=== PATIENT | male | born 1935 | race Caucasian/White ===

== ENCOUNTER 2016-08-17 07:08 | Day surgery (SDC) | payer MEDICARE, OTHER ==
[2016-08-17] MEDS ORDERED: PROMETHAZINE HCL INJ 25 MG/1 ML VIAL ONE (07:11)
[2016-08-17] MEDS ORDERED: ONDANSETRON HCL INJ/PF 4 MG/2 ML SDV ONE (07:11)
[2016-08-17] MEDS ORDERED: NALOXONE HCL INJ/PF 0.4 MG/1 ML SDV ONE (07:11)
[2016-08-17] MEDS ORDERED: GLYCOPYRROLATE INJ 0.4 MG/2 ML VIAL ONE (07:11)
[2016-08-17] MEDS ORDERED: GLUCAGON,HUMAN RECOMB 1 MG INJ ONE (07:12)
[2016-08-17] MEDS ORDERED: EPINEPHRINE INJ 1 MG/10 ML DISP.SYRIN ONE (07:12)
[2016-08-17] MEDS ORDERED: FENTANYL CITRATE INJ/PF 100 MCG/2 ML AMPUL ONE (07:12)
[2016-08-17] MEDS ORDERED: FLUMAZENIL INJ 0.5 MG/5 ML VIAL IV ONE (07:12)
[2016-08-17] MEDS: MIDAZOLAM 2 MG/2 ML INJ ONE ×3 (07:48→08:08)
--- NOTE | 2016-08-17 08:50 | Operative Report ---
Operative Report DATE OF SURGERY: 08/17/16 PREOPERATIVE DIAGNOSIS: Need for screening colonoscopy POSTOPERATIVE DIAGNOSIS: 1. External hemorrhoid, collapsed. 2. Sigmoid diverticulosis. 3. Cecal mass OPERATION: 1. Total colonoscopy to cecum. 2. Piecemeal excision of of cecal mass SURGEON: LEONARDA GOLDEN ANESTHESIA: Moderate Sedation TISSUE REMOVED OR ALTERED: Cecal mass portions COMPLICATIONS: None ESTIMATED BLOOD LOSS: scant INTRAOPERATIVE FINDINGS: See below PROCEDURE: Obtaining informed consent the patient was taken from the preoperative holding area to the main endoscopy suite where monitoring devices were attached to the patient. Plan and surgical timeout were conducted The patient was placed in the left lateral decubitus position with knees to chest. A perianal examination was performed. There was no visible or palpable anorectal pathology. Was a small external posterior collapsed hemorrhoid. Sphincter tone was felt to be normal. The flexible adult colonoscope was advanced through the lower rectum mid rectum upper rectum and sigmoid colon. Scope could not be advanced because of kinking of the colon. Patient was changed to different positions and then it was discovered that the colonoscope was getting hung up in the sigmoid colon which was gently herniating into the left hemiscrotum. We removed the adult colonoscope and advanced the pediatric scope successfully through the rectum, and sigmoid colon by having the patient stay in the supine position. The scope was advanced uneventfully all the way to the cecum. There was a cecal mass on the medial side of the wall of the junction with the descending colon. It was approximately 2-1/2-3 cm in diameter, very friable, pedunculated in areas. Multiple photos were taken. We used a combination of forceps and hot snare to debulk the mass. Fragments were collected through the scope and sent to pathology as a cecal mass. We left behind approximately one third of the mass the base of the wall. Bleeding was negligible. The remainder of the cecum appendiceal orifice were normal. Otherwise, denies This was an excellent study on the well-prepped bowel. The colonoscope was withdrawn slowly and methodically checked and the mucosa carefully. There was scattered diverticulosis easily sigmoid colon. There were no other lesions seen in the colon . Complete visualization of the rectum was achieved with photodocumentation. The scope was withdrawn to the patient's anus. The patient tolerated the procedure well and was taken to the recovery area in stable condition. Immunizations for repeat colonoscopy will be predicated on the pathology report , and patient's preference for additional interventions.
--- NOTE | 2016-08-17 08:52 | PDOC DISCHARGE SUMMARY ---
Discharge Summary (SDC) - Discharge Final Diagnosis: Cecal mass ; Sigmoid diverticulosis Date of Surgery: 08/17/16 Discharge Date: 08/17/16 Condition: Good Treatment or Instructions: [facility] [place] [id number] POST ENDOSCOPY DISCHARGE INSTRUCTIONS 1. Diet: Start clear liquids that a regular diet as tolerated. 2. Resume all preoperative medications. All oral anticoagulations and aspirins can be resumed 24 hours after procedure. 3. If a polypectomy was performed some bleeding per rectum may occur. This should stop within 3 days. If not, please contact the office. 4. If you had a colonscopy you may experience some bloating and delayed return of normal bowel function for several days, your regular bowel movement pattern should resume within a week. 5. Please contact [facility] at to make an appointment with Dr Paredes for 1 to 3 weeks following procedure. 6. If you have any questions or concerns regarding your care,treatment plan or follow up, please contact our office. 7. Follow up colonoscopy will be discussed with patient pending pathology report and patient's preference Discharge Diet: As Tolerated Discharge Activity: Activity As Tolerated Report the Following to Your Physician Immediately: Shortness of Breath, Increase in Pain, Fever over 101 Degrees
[2016-08-17 09:56] VITALS: BP 123/67
== END 2016-08-17 09:40 | disposition home or self-care (01) ==
LOC: END 07:08
PROVIDERS: ATTEND Surgery
PROC: 0DBH8ZX Excision of Cecum, Via Natural or Artificial Opening Endoscopic, Diagnostic (ICD-10-PCS; principal; 2016-08-17 07:30)
DX: Z12.11 Encounter for screening for malignant neoplasm of colon (principal); D12.4 Benign neoplasm of descending colon; K57.30 Diverticulosis of large intestine without perforation or abscess without bleeding; K64.4 Residual hemorrhoidal skin tags; E78.00 Pure hypercholesterolemia, unspecified; I48.91 Unspecified atrial fibrillation; I10 Essential (primary) hypertension; I71.4 Abdominal aortic aneurysm, without rupture; I25.10 Atherosclerotic heart disease of native coronary artery without angina pectoris; E11.9 Type 2 diabetes mellitus without complications; Z79.899 Other long term (current) drug therapy; Z79.01 Long term (current) use of anticoagulants; Z79.84 Long term (current) use of oral hypoglycemic drugs; Z87.891 Personal history of nicotine dependence
CPT/HCPCS: 45380; 45385; 82962; 88305 ×2; J2250; J3010; J0171; J1610; J2310; J2405; J2550; J3490

== ENCOUNTER 2016-10-04 06:51 | Day surgery (SDC) | payer MEDICARE, OTHER ==
[2016-09-27 10:23] LABS: HEMOGLOBIN 13.5 g/dL (13.5-17.0); HGB HCT DIFFERENCE -0.5; MEAN CORPUSCULAR HEMOGLOBIN 31.9 pg (27.0-33.4); MEAN CORPUSCULAR HGB CONC 32.9 g/dL (32.0-36.0); MEAN CORPUSCULAR VOLUME 97 fl (80-97); RED BLOOD COUNT 4.24 10^6/uL (4.35-5.55); RED CELL DISTRIBUTION WIDTH 16.5 % (11.5-14.0); WHITE BLOOD COUNT 8.6 10^3/uL (4.0-10.5)
[2016-09-27 10:45] LABS: ANION GAP 13 (5-19); BLOOD UREA NITROGEN 18 mg/dL (7-20); CALCIUM 9.1 mg/dL (8.4-10.2); CARBON DIOXIDE 25 mmol/L (22-30); CHLORIDE 102 mmol/L (98-107); CREATININE RESULT 1.21 mg/dL (0.52-1.25); GLUCOSE 245 mg/dL (75-110); POTASSIUM 4.8 mmol/L (3.6-5.0); SODIUM 140.4 mmol/L (137-145)
[~2016-10-04 06:51] MED LIST: ACETAMINOPHEN 325 MG TABLET PO PRN; BUPIVACAINE HCL 0.25 % INJ/PF (2.5 MG/1 ML) 30 ML VIAL ONE; BUPIVACAINE INJ/PF LIPOSOME/PF 266 MG/20 ML SDV ONE; CEFAZOLIN 1 GM/D5W RTU 1 GM/50 ML RTUPB IV PRN; LACTATED RINGERS 1000 ML IV PRN; LIDOCAINE 0.5% INJ-PF (5 MG/ML) 50 ML SDV SUBCUT PRN; RINGERS SOLUTION,LACTATED 1,000 ML IV PRN
[2016-10-04] MEDS ORDERED: ACETAMINOPHEN 100 ML IV ONE (07:41)
[2016-10-04] MEDS ORDERED: PROPOFOL INJ 200 MG/20 ML VIAL IV ONE (07:41)
[2016-10-04] MEDS ORDERED: HYDROMORPHONE HCL INJ/PF 2 MG/ML AMPULE ONE (07:41)
[2016-10-04] MEDS ORDERED: MIDAZOLAM 2 MG/2 ML INJ ONE (07:41)
[2016-10-04 07:43] LABS: PROTHROMBIN TIME 14.7 SEC (11.4-15.4)
[2016-10-04 07:44] LABS: PARTIAL THROMBOPLASTIN TIME 29.4 SEC (23.5-35.8)
[2016-10-04] MEDS ORDERED: BUPIVACAINE HCL 0.25 % INJ/PF (2.5 MG/1 ML) 30 ML VIAL ONE (08:13)
[2016-10-04] MEDS ORDERED: FENTANYL CITRATE INJ/PF 100 MCG/2 ML AMPUL IV PRN ×3 (08:16)
[2016-10-04] MEDS ORDERED: OXYCODONE-ACETAMINOPHEN 5-325 MG TABLET PO PRN ×6 (08:16→10:56)
[2016-10-04] MEDS ORDERED: MORPHINE SULFATE 10 MG/ML INJ IV PRN ×2 (08:16→09:49)
[2016-10-04] MEDS ORDERED: DIPHENHYDRAMINE HCL 50 MG/ML VIAL IV PRN (08:16)
[2016-10-04] MEDS ORDERED: PROMETHAZINE HCL INJ 25 MG/1 ML VIAL IV PRN ×2 (08:16)
[2016-10-04] MEDS ORDERED: MEPERIDINE HCL/PF INJ 25 MG/1 ML DISP.SYRIN IV PRN (08:16)
--- NOTE | 2016-10-04 09:48 | Operative Report ---
Operative Report DATE OF SURGERY: 10/04/16 PREOPERATIVE DIAGNOSIS: Left inguinal hernia symptomatic POSTOPERATIVE DIAGNOSIS: Same, direct OPERATION: 1. Left inguinal exploration. 2. Left Inguinal herniorrhaphy with large daily at bedtime Prolene hernia system. 3. Excision of multiple cord lipomas. SURGEON: LEONARDA SANDERSON ASSOCIATE PROFESSOR OF COMMUNICATION: EVAN DAVID ANESTHESIA: LMAC TISSUE REMOVED OR ALTERED: Cord lipomas COMPLICATIONS: none ESTIMATED BLOOD LOSS: minimal INTRAOPERATIVE FINDINGS: See below PROCEDURE: The patient was seen in the preop holding area with a left inguinal area had been previously repair. It was marked by the surgeon. The patient was taken to the operating room were LMAC anesthesia was induced. The left inguinal area was prepped and draped in sterile fashion. Surgical plan surgical time out conducted. Surgical landmarks were identified. The skin was anesthetized with quarter percent Marcaine. A standard left inguinal herniorrhaphy incision was made with a #10 blade approximately 6 cm long. Tissue and Woo's fascia were divided with scissors and electrocautery. Associated superficial veins were ligated and divided as it encountered. The tissue here was somewhat abnormal in that the patient had very redundant fatty folds, almost in developed bundles. This created some confusion initially in terms of the anatomic configuration of the patient's superficial abdominal wall. Nonetheless after further spreading of the subcutaneous tissue we are able to identify the external ring and the anatomy here after was predictable. Additional anesthesia was applied to the external oblique aponeurosis and the external ring was opened. The contents of the inguinal canal were now mobilized. Structures were from the moderate sized hernia sac. Hernia sac was dissected all the way to its point of origin which was in fact a direct hernia. Contained within its sac. It was medial to the inferior epigastric vessels. We interrogated all the structures lateral to the inferior epigastric vessels. This included 2 cord lipomas which were dissected off of the cord structures, and ligated at their respective bases with 2-0 Vicryl suture and divided. We left a generous amount of fatty tissue along with the papilliform plexus and vas deferens. We interrogated this should carefully and determine there was no indirect inguinal hernia sac. We now called our attention to the repair. I decided to deploy a large uhs hernia system prosthesis. I opened up the retroperitoneal space just medial to the inferior epigastric vessels and bluntly dissected all the retroperitoneal fat off of the anterior abdominal wall. We then deployed the inner component of the mesh in a circumferential fashion positioning the inner component in a satisfactory configuration. We then positioned the external component over the anatomic inguinal floor and sewed it to conjoined tendon and Cuauhtemoc's ligament. A small notch was cut at the 6 o'clock position to accommodate the cord structures. Similarly 8 sutures of #1 PDS suture were used to secure the outer component. Of note a branch of the ilioinguinal nerve was divided during this fixation maneuver. The end of that nerve branch was anesthetized with quarter percent Marcaine. Once the mesh was in position and secured, the new internal ring was felt to be of appropriate snugness. Bleeding was negligible throughout the case. The external oblique aponeurosis was closed over the mesh with 2-0 Vicryl suture, Woo's fascia and skin closed with 20 with 3-0 Vicryl respectively and skin approximated with skin glue. Skin was anesthetized with exparel. Postoperative procedure well and taken recovery in stable condition The physician patient care assistant, Ms. David, provided assistance during this case by: Assisting with retracting tissue, instillation of local anesthesia and closure of skin incisions.
[2016-10-04] MEDS ORDERED: ONDANSETRON HCL INJ/PF 4 MG/2 ML SDV IV PRN (09:49)
[2016-10-04] MEDS ORDERED: SIMVASTATIN 40 MG TABLET PO ONE (21:00)
[2016-10-04] MEDS ORDERED: METFORMIN HCL 500 MG TABLET PO ONE (21:00)
[2016-10-04] MEDS ORDERED: (PENDING PHARMACY ID) (Ergocalciferol (Vitamin D2) [Vitamin D] 400 UNIT) PO SCH (21:00)
[2016-10-04] MEDS ORDERED: CYANOCOBALAMIN (VITAMIN B-12) 1,000 MCG TABLET PO ONE (21:00)
[2016-10-04] MEDS ORDERED: CYANOCOBALAMIN 500 MCG PO SCH (21:00)
[2016-10-04] MEDS ORDERED: GLIMEPIRIDE 4 MG TABLET PO ONE (21:00)
[2016-10-05] MEDS ORDERED: (PENDING PHARMACY ID) (Ergocalciferol (Vitamin D2) [Vitamin D] 400 UNIT) PO SCH (10:00)
[2016-10-05] MEDS ORDERED: LISINOPRIL 5 MG TABLET PO SCH (10:00)
[2016-10-05] MEDS ORDERED: GLIMEPIRIDE 4 MG TABLET PO SCH (10:00)
[2016-10-05] MEDS ORDERED: METFORMIN HCL 500 MG TABLET PO SCH (10:00)
[2016-10-05] MEDS ORDERED: ENOXAPARIN SODIUM INJ 100 MG/1 ML DISP.SYRIN SUBCUT ONE (12:00)
[2016-10-05 13:57] VITALS: BP 137/60
[2016-10-05] MEDS ORDERED: CHOLECALCIFEROL (D3) 400 UNIT TABLET PO ONE (16:00)
[2016-10-05] MEDS ORDERED: CYANOCOBALAMIN 500 MCG PO SCH (18:00)
[2016-10-05] MEDS ORDERED: CYANOCOBALAMIN (VITAMIN B-12) 1,000 MCG TABLET PO SCH (18:00)
[2016-10-05] MEDS ORDERED: SIMVASTATIN 40 MG TABLET PO SCH (18:00)
[2016-10-06] MEDS ORDERED: CHOLECALCIFEROL (D3) 400 UNIT TABLET PO SCH (10:00)
== END 2016-10-05 12:40 | disposition home or self-care (01) ==
LOC: OROUT 06:51 → 4S 13:00 → OROUT 10-05 12:40
PROVIDERS: ATTEND Surgery
PROC: 0VBG0ZX Excision of Left Spermatic Cord, Open Approach, Diagnostic (ICD-10-PCS; 2016-10-04)
PROC: 0YU60JZ Supplement Left Inguinal Region with Synthetic Substitute, Open Approach (ICD-10-PCS; principal; 2016-10-04 09:00)
DX: K40.90 Unilateral inguinal hernia, without obstruction or gangrene, not specified as recurrent (principal); E78.00 Pure hypercholesterolemia, unspecified; R63.4 Abnormal weight loss; I48.91 Unspecified atrial fibrillation; I25.10 Atherosclerotic heart disease of native coronary artery without angina pectoris; I71.4 Abdominal aortic aneurysm, without rupture; E11.42 Type 2 diabetes mellitus with diabetic polyneuropathy; M19.90 Unspecified osteoarthritis, unspecified site; I10 Essential (primary) hypertension; Z79.899 Other long term (current) drug therapy; Z79.01 Long term (current) use of anticoagulants; Z51.81 Encounter for therapeutic drug level monitoring; Z12.11 Encounter for screening for malignant neoplasm of colon; Z88.6 Allergy status to analgesic agent; Z87.891 Personal history of nicotine dependence; Z79.84 Long term (current) use of oral hypoglycemic drugs
CPT/HCPCS: 36415 ×2; 82962; 85027; 85610; 85730; 80048; 88304 ×2; 49505; 55520; C1781; J2250; J0690; A9270 ×8; J1170; J3490; J2704; J1650; J0131; C9290; 830

== ENCOUNTER → 2016-10-07 | Outpatient (CLI) | payer MEDICARE, OTHER ==
[2016-10-07 12:22] LABS: PROTHROMBIN TIME 14.5 SEC (11.4-15.4)
== END ==
LOC: OD 11:22
PROVIDERS: ATTEND Surgery
DX: Z51.81 Encounter for therapeutic drug level monitoring (principal); Z79.01 Long term (current) use of anticoagulants; K40.90 Unilateral inguinal hernia, without obstruction or gangrene, not specified as recurrent
CPT/HCPCS: 36415; 85610

== ENCOUNTER 2017-03-04 09:02 | Emergency (ER) | payer MEDICARE, OTHER ==
[2017-03-04 09:38] LABS: HEMATOCRIT 39.1 % (37.9-51.0); HGB HCT DIFFERENCE -0.1; MEAN CORPUSCULAR HGB CONC 33.2 g/dL (32.0-36.0); MEAN CORPUSCULAR VOLUME 99 fl (80-97); RED BLOOD COUNT 3.93 10^6/uL (4.35-5.55); RED CELL DISTRIBUTION WIDTH 16.3 % (11.5-14.0); VENOUS BLOOD BASE EXCESS -1.5 mmol/L; VENOUS BLOOD PCO2 43.5 mmHg (35-63); VENOUS BLOOD PH 7.36 (7.30-7.42); WHITE BLOOD COUNT 18.4 10^3/uL (4.0-10.5)
[2017-03-04 09:44] LABS: PROTHROMBIN TIME 17.6 SEC (11.4-15.4)
[2017-03-04 09:54] LABS: ALANINE AMINOTRANSFERASE 39 U/L (21-72); ALBUMIN 3.3 g/dL (3.5-5.0); ALKALINE PHOSPHATASE 71 U/L (38-126); ANION GAP 17 (5-19); ASPARTATE AMINO TRANSFERASE 25 U/L (17-59); BILIRUBIN,DIRECT 0.5 mg/dL (0.0-0.4); BILIRUBIN,TOTAL 1.5 mg/dL (0.2-1.3); BLOOD UREA NITROGEN 39 mg/dL (7-20); CALCIUM 8.7 mg/dL (8.4-10.2); CARBON DIOXIDE 20 mmol/L (22-30); CHLORIDE 102 mmol/L (98-107); CREATININE RESULT 1.45 mg/dL (0.52-1.25); POTASSIUM 4.4 mmol/L (3.6-5.0); SODIUM 139.4 mmol/L (137-145); TOTAL PROTEIN 6.6 g/dL (6.3-8.2)
[2017-03-04 10:00] LABS: GLUCOSE 398 mg/dL (75-110)
[2017-03-04] MEDS ORDERED: ERTAPENEM SODIUM INJ 1 GM VIAL IV ONE (10:12)
[2017-03-04] MEDS ORDERED: ONDANSETRON HCL INJ/PF 4 MG/2 ML SDV IV ONE ×2 (10:12→13:21)
[2017-03-04 10:18] LABS: BASOPHILS % (MANUAL) 0 % (0-2); EOSINOPHILS % (MANUAL) 0 % (0-6); LYMPHOCYTES % (MANUAL) 2 % (13-45); TOTAL CELLS COUNTED 100; TOXIC GRANULATION 1+; TOXIC VACUOLATION PRESENT
[2017-03-04 10:19] LABS: ANISOCYTOSIS 1+; OVALOCYTES SLIGHT; POIKILOCYTOSIS SLIGHT
[2017-03-04 10:20] LABS: BAND NEUTROPHILS % (MANUAL) 21 % (3-5)
[2017-03-04 10:27] LABS: APPEARANCE,URINE SLIGHTLY-CLOUDY; BILIRUBIN,URINE NEGATIVE (NEGATIVE); GLUCOSE, URINE >=500 mg/dL (NEGATIVE); KETONES,URINE NEGATIVE (NEGATIVE); LEUKOCYTE ESTERASE,URINE NEGATIVE (NEGATIVE); NITRITE,URINE NEGATIVE (NEGATIVE); PROTEIN,URINE 30 mg/dL (NEGATIVE); URINE SPECIFIC GRAVITY 1.021; UROBILINOGEN,URINE NEGATIVE mg/dL (<2.0)
--- NOTE | 2017-03-04 11:09 | RADIOLOGY REPORT (SQ) ---
EXAM DESCRIPTION: CHEST SINGLE VIEW COMPLETED DATE/TIME: 03/04/2017 10:58 am REASON FOR STUDY: hypoxia COMPARISON: 12/21/2015. EXAM PARAMETERS: NUMBER OF VIEWS: One view. TECHNIQUE: Single frontal radiographic view of the chest acquired. RADIATION DOSE: NA LIMITATIONS: None. FINDINGS: LUNGS AND PLEURA: Mild basilar atelectasis. Focal density adjacent to the cardiac apex. No masses or pneumothorax. No pleural effusion. MEDIASTINUM AND HILAR STRUCTURES: No masses. Contour normal. HEART AND VASCULAR STRUCTURES: Heart upper limits of normal in size. Normal vasculature. BONES: No acute findings. HARDWARE: Sternotomy wires and coronary bypass markers. OTHER: No other significant finding. IMPRESSION: FOCAL DENSITY IN THE LEFT LUNG ADJACENT TO THE CARDIAC APEX, POSSIBLY DEVELOPING INFILTR ATE. TECHNICAL DOCUMENTATION: JOB ID: [id number]
[2017-03-04] MEDS: NORMAL SALINE 1000 ML 1,000 ML IV PRN ×2 (13:17→16:04)
[2017-03-04] MEDS ORDERED: MORPHINE SULFATE 10 MG/ML INJ IV ONE (13:21)
[2017-03-04] MEDS ORDERED: NORMAL SALINE 1000 ML 1,000 ML IV ONE (13:22)
--- NOTE | 2017-03-04 13:29 | RADIOLOGY REPORT (SQ) ---
EXAM DESCRIPTION: CTA CHEST COMPLETED DATE/TIME: 03/04/2017 1:10 pm REASON FOR STUDY: eval pe COMPARISON: None. TECHNIQUE: CT scan of the chest performed using helical scanning technique with dynamic intravenous contrast injection. Images reviewed with lung, soft tissue and bone windows. Reconstructed coronal and sagittal MPR images reviewed. Additional 3 dimensional post-processing performed to develop Maximal Intensity Projection images (LA P). All images stored on PACS. All CT scanners at this facility use dose modulation, iterative reconstruction, and/or weight based d osing when appropriate to reduce radiation dose to as low as reasonably achievable (ALARA). [facility]: Dose Right [facility]: CareDose [facility]: Dose Right [facility]: Teradose 4D [facility]: Ge.tt CONTRAST TYPE AND DOSE: contrast/concentration: Isovue 370.00 mg/ml; Total Contrast Delivered: 82.0 ml; Total Saline Delivered: 105.9 ml RENAL FUNCTION: BUN 39 creatinine 1.45. RADIATION DOSE: . LIMITATIONS: None. FINDINGS: LUNGS AND PLEURA: Scattered atelectasis and scarring. Mild bronchiectasis. Infiltrate in the posterior left upper lobe along the fissure. No pleural effusion. No pneumothorax. AORTA AND GREAT VESSELS: No aneurysm or dissection. HEART: No pericardial effusion. PULMONARY ARTERIES: Nonocclusive thrombus to a single branch vessel in the left upper lobe. HILAR AND MEDIASTINAL STRUCTURES: Distended esophagus. No identified masses or abnormal nodes. HARDWARE: None in the chest. UPPER ABDOMEN: See separate report of the CT of the abdomen. THYROID AND OTHER SOFT TISSUES: No masses. No adenopathy. BONES: No acute or significant finding. 3D MIPS: Confirm above findings. OTHER: No other significant finding. IMPRESSION: 1. SINGLE NONOCCLUSIVE THROMBUS TO A SMALL BRANCH VESSEL IN THE LEFT UPPER LOBE. 2. INFILTRATE IN THE POSTERIOR LEFT UPPER LOBE ALONG THE FISSURE, CONCERNING FOR PNEUMONIA. 3. SCATTERED ATELECTASIS/SCARRING. TECHNICAL DOCUMENTATION: JOB ID: [id number] Quality ID # [id number]: Final reports with documentation of one or more dose reduction techniques (e.g., Au tomated exposure control, adjustment of the mA and/or kV according to patient size, use of iterative reconstruction technique) 2010 [employer]- All Rights Reserved
[2017-03-04] MEDS ORDERED: LEVOFLOXACIN 500 MG/D5W RTU 100 ML IV ONE (13:33)
[2017-03-04] MEDS ORDERED: CEFEPIME 1 GM/D5W RTU 50 ML IV ONE (13:33)
[2017-03-04] MEDS ORDERED: LIDOCAINE 1% INJ-PF (10 MG/ML) 30 ML SDV NEB ONE (13:43)
[2017-03-04] MEDS ORDERED: ENOXAPARIN SODIUM INJ 100 MG/1 ML DISP.SYRIN SUBCUT SCH ×2 (13:45→22:00)
[2017-03-04] MEDS ORDERED: PHARMACY COMMUNICATION ORDER MC NR (13:45)
--- NOTE | 2017-03-04 13:46 | RADIOLOGY REPORT (SQ) ---
EXAM DESCRIPTION: CT ABD/PELVIS WITH IV ORAL COMPLETED DATE/TIME: 03/04/2017 12:59 pm REASON FOR STUDY: pod 6 bowel resection hypoxia distention COMPARISON: None. TECHNIQUE: CT scan of the abdomen and pelvis performed with intravenous and oral contrast using kimberly alec scanning technique with dynamic intravenous contrast injection. Images reviewed with lung, soft t issue, and bone windows. Reconstructed coronal and sagittal MPR images reviewed. Delayed images for e valuation of the urinary system also acquired. All images stored on PACS. All CT scanners at this facility use dose modulation, iterative reconstruction, and/or weight based d osing when appropriate to reduce radiation dose to as low as reasonably achievable (ALARA). [facility]: Dose Right [facility]: CareDose [facility]: Dose Right [facility]: Teradose 4D [facility]: Weilos CONTRAST TYPE AND DOSE: 82 mL Isovue 370- low osmolar. RENAL FUNCTION: BUN 39 creatinine 1.45. RADIATION DOSE: Up-to-date CT equipment and radiation dose reduction techniques were employed. CTDIv ol: 19.8 - 28.2 mGy. DLP: 4206 mGy-cm.. LIMITATIONS: None. FINDINGS: LOWER CHEST: See separate report of the CT of the chest. LIVER: Normal size. No masses. No dilated ducts. Small amount of portal venous gas primarily in the left lobe. SPLEEN: Normal size. No focal lesions. PANCREAS: No masses. No significant calcifications. No adjacent inflammation or peripancreatic fluid collections. Pancreatic duct not dilated. GALLBLADDER: Surgically absent. ADRENAL GLANDS: No significant masses or asymmetry. RIGHT KIDNEY AND URETER: No solid masses. No significant calcification. No hydronephrosis or hydroure ter. LEFT KIDNEY AND URETER: No solid masses. No significant calcification. No hydronephrosis or hydrouret er. AORTA AND VESSELS: Endovascular stent in the distal abdominal aorta and common iliac arteries. No an eurysm. No dissection. Renal arteries, SMA, celiac without stenosis. There is a single bubble of gas in the main portal vein. RETROPERITONEUM: No retroperitoneal adenopathy, hemorrhage or masses. BOWEL AND PERITONEAL CAVITY: Previous partial colectomy and bowel resection with anastomosis in the r ight side of the abdomen. Markedly distended stomach and small bowel. The colon is not distended. There is a small amount of free intraperitoneal air. No free fluid. APPENDIX: Surgically absent. PELVIS: No significant masses. Normal bladder. No free fluid. ABDOMINAL WALL: No masses. No hernias. BONES: No significant or acute findings. OTHER: No other significant finding. IMPRESSION: 1. SURGICAL CHANGES WITH PARTIAL COLECTOMY AND BOWEL RESECTION AND ANASTOMOSIS ON THE RIGHT SIDE OF T HE ABDOMEN. MARKEDLY DISTENDED STOMACH AND SMALL BOWEL CONSISTENT WITH MECHANICAL OBSTRUCTION. A SM ALL AMOUNT OF PORTAL VENOUS AIR IS PRESENT. SMALL AMOUNT OF FREE AIR SECONDARY TO RECENT SURGERY. 2. NO OTHER ACUTE FINDINGS. ENDOVASCULAR STENT IN THE ABDOMINAL AORTA AND ILIAC ARTERIES. PREVIOUS CHOLECYSTECTOMY. COMMENT: The findings were discussed with Dr. Bragg on 03/04/2017 at 1330 hours. TECHNICAL DOCUMENTATION: JOB ID: [id number] Quality ID # 436: Final reports with documentation of one or more dose reduction techniques (e.g., Au tomated exposure control, adjustment of the mA and/or kV according to patient size, use of iterative reconstruction technique) 2010 [employer]- All Rights Reserved
--- NOTE | 2017-03-04 14:57 | RADIOLOGY REPORT (SQ) ---
EXAM DESCRIPTION: KUB/ABDOMEN (SINGLE VIEW) COMPLETED DATE/TIME: 03/04/2017 2:49 pm REASON FOR STUDY: Check Placement of NG Tube COMPARISON: None. NUMBER OF VIEWS: One view. TECHNIQUE: Supine radiographic image of the abdomen acquired. LIMITATIONS: None. FINDINGS: BOWEL GAS PATTERN: Dilated small bowel loops. CALCIFICATIONS: No suspicious calcifications. SOFT TISSUES: No gross mass or suggestion of organomegaly. HARDWARE: Nasogastric tube with the tip in the stomach. Surgical clips. BONES: No acute fracture. No worrisome bone lesions. OTHER: No other significant finding. IMPRESSION: NASOGASTRIC TUBE WITH THE TIP IN THE STOMACH. DILATED SMALL BOWEL LOOPS SECONDARY TO OB STRUCTION. TECHNICAL DOCUMENTATION: JOB ID: [id number] [employer]- All Rights Reserved
--- NOTE | 2017-03-04 15:22 | ER Document Report ---
ED General - General Chief Complaint: Nausea/Vomiting Stated Complaint: NAUSEA,VOMITING Time Seen by Provider: 03/04/17 09:14 TRAVEL OUTSIDE OF THE [place] IN LAST 30 DAYS: No - HPI Patient complains to provider of: Nausea vomiting Notes: Patient is coming in to the ER today for nausea vomiting. 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 Patient states tolerating his homecare well this morning started having nausea vomiting patient states no recent bowel movements no recent passage of gas. Patient does have a history of atrial fibrillation did hold his Coumadin prior to surgery states started his Coumadin approximately 3 days prior to his ER visit here. Patient denies any shortness of breath however was found to be hypoxic requiring oxygen now in the ER to maintain his SPO2 status patient denies any chest pain does state having abdominal pain. Denies fevers chills denies diarrhea denies any recent flatus - Related Data Allergies/Adverse Reactions: aspirin Allergy (Mild, Verified 03/04/17 09:32) Generalized rash Home Medications: Current Home Medications Nitroglycerin [Nitrostat 0.4 mg (1/150 Gr) Tabs 25/Bottle] 1 tab SL Q5MP PRN 01/13 [History] Past Medical History - Social History Smoking Status: Former Smoker Frequency of alcohol use: None Drug Abuse: None Family History: Reviewed & Not Pertinent - Past Medical History Cardiac Medical History: Reports: Hx Coronary Artery Disease - CARDIAC STENTS X2 , Hx Heart Attack - 1997 open heart surgery 2002 Comment Only: Hx Hypertension - TAKING B/P MEDS B/C OF [place] HX Pulmonary Medical History: Reports: Hx Pneumonia Denies: Hx Asthma, Hx Bronchitis, Hx COPD Neurological Medical History: Denies: Hx Cerebrovascular Accident, Hx Seizures Endocrine Medical History: Reports: Hx Diabetes Mellitus Type 2 Musculoskeltal Medical History: Reports Hx Arthritis Past Surgical History: Reports: Hx Appendectomy, Hx Bowel Surgery - 1 ft removed /colon surgery, Hx Cardiac Surgery - Immunizations Hx Diphtheria, Pertussis, Tetanus Vaccination: No Review of Systems - Review of Systems Constitutional: No symptoms reported EENT: No symptoms reported Cardiovascular: No symptoms reported Respiratory: No symptoms reported Gastrointestinal: Abdominal pain Genitourinary: No symptoms reported Male Genitourinary: No symptoms reported Musculoskeletal: No symptoms reported Skin: No symptoms reported Hematologic/Lymphatic: No symptoms reported Neurological/Psychological: No symptoms reported -: Yes All other systems reviewed and negative Physical Exam - Vital signs Vitals: Temp Pulse Resp Pulse Ox 98.4 F 120 H 20 87 L 03/04/17 09:05 03/04/17 09:05 03/04/17 09:05 03/04/17 09:05 Interpretation: Hypoxic - General General appearance: Appears well, Alert - HEENT Head: Normocephalic, Atraumatic Eyes: Normal Pupils: PERRL - Respiratory Respiratory status: No respiratory distress Chest status: Nontender Breath sounds: Normal Chest palpation: Normal - Cardiovascular Rhythm: Irregularly irregular, Tachycardia Heart sounds: Normal auscultation Murmur: No - Abdominal Inspection: Normal Distension: Distended Bowel sounds: Hyperactive Tenderness: Tender - Diffusely tender Organomegaly: No organomegaly Notes: Midline surgical scar well-healed no signs of dehiscence or infection - Back Back: Normal, Nontender - Extremities General upper extremity: Normal inspection, Nontender, Normal color, Normal ROM , Normal temperature General lower extremity: Normal inspection, Nontender, Normal color, Normal ROM , Normal temperature, Normal weight bearing. No: David's sign - Neurological Neuro grossly intact: Yes Cognition: Normal Orientation: AAOx4 [place] Coma Scale Eye Opening: Spontaneous [place] Coma Scale Verbal: Oriented Tanisha Coma Scale Motor: Obeys Commands [place] Coma Scale Total: 15 Speech: Normal Motor strength normal: LUE, RUE, LLE, RLE Sensory: Normal - Psychological Associated symptoms: Normal affect, Normal mood - Skin Skin Temperature: Warm Skin Moisture: Dry Skin Color: Normal Course - Re-evaluation Re-evalutation: 03/04/17 15:19 Presentation concerning for small bowel obstruction. His hypoxia concerned about possible PE and pneumonia. Chest x-ray confirmed pneumonia. CT of the chest confirmed a small PE. Patient also had a CT of his abdomen confirming small bowel obstruction. Patient was given a dose of Lovenox was initially given a dose of Invanz and broaden with cefepime and Levaquin. Patient had a NG tube placed by nursing staff with copious amounts of dark liquid return. Discussed with Dr. parikh formerly [facility] where the patient had his surgery. Patient was accepted in transfer. Antibiotics IV fluids have been given. Patient remains n.p.o. status. - Vital Signs Vital signs: Temp Pulse Resp BP Pulse Ox 98.4 F 120 H 24 H 100/57 L 92 03/04/17 09:05 03/04/17 09:05 03/04/17 15:11 03/04/17 15:11 03/04/17 15:11 - Laboratory Result Diagrams: 03/04/17 09:24 03/04/17 09:24 Laboratory results interpreted by me: 03/04/17 03/04/17 03/04/17 09:24 09:24 09:24 WBC 18.4 H RBC 3.93 L Hgb 13.0 L MCV 99 H RDW 16.3 H Band Neutrophils % 21 H Lymphocytes % (Manual) 2 L Abs Neuts (Manual) 16.7 H PT 17.6 H Carbon Dioxide 20 L BUN 39 H Creatinine 1.45 H Est GFR ( Amer) 56 L Est GFR (Non-Af Amer) 47 L Glucose 398 H Lactic Acid Total Bilirubin 1.5 H Direct Bilirubin 0.5 H Albumin 3.3 L Lipase Urine Protein Urine Glucose (UA) Urine Blood 03/04/17 03/04/17 03/04/17 09:24 09:59 13:40 WBC RBC Hgb MCV RDW Band Neutrophils % Lymphocytes % (Manual) Abs Neuts (Manual) PT Carbon Dioxide BUN Creatinine Est GFR ( Amer) Est GFR (Non-Af Amer) Glucose Lactic Acid 4.3 H Total Bilirubin Direct Bilirubin Albumin Lipase 10.4 L Urine Protein 30 H Urine Glucose (UA) >=500 H Urine Blood MODERATE H 03/04/17 13:40 WBC RBC Hgb MCV RDW Band Neutrophils % Lymphocytes % (Manual) Abs Neuts (Manual) PT Carbon Dioxide BUN Creatinine Est GFR ( Amer) Est GFR (Non-Af Amer) Glucose Lactic Acid 3.3 H Total Bilirubin Direct Bilirubin Albumin Lipase Urine Protein Urine Glucose (UA) Urine Blood Critical Care Note - Critical Care Note Total time excluding time spent on procedures (mins): 45 Comments: Multiple evaluations for patient with sepsis Discharge - Discharge Clinical Impression: Small bowel obstruction, History of atrial fibrillation Sepsis Qualifiers: Sepsis type: sepsis due to unspecified organism Qualified Code(s): A41.9 - Sepsis, unspecified organism Pneumonia Qualifiers: Pneumonia type: due to unspecified organism Laterality: left Lung location: upper lobe of lung Qualified Code(s): J18.1 - Lobar pneumonia, unspecified organism Pulmonary embolism Qualifiers: Pulmonary embolism type: other Chronicity: acute Acute cor pulmonale presence: without acute cor pulmonale Qualified Code(s): I26.99 - Other pulmonary embolism without acute cor pulmonale Condition: Fair Disposition: [facility]
[2017-03-04] MEDS ORDERED: CEFEPIME 1 GM/D5W RTU 1 GM/50 ML RTUPB IV ONE (16:15)
[2017-03-04 17:12] VITALS: BP 100/60
--- NOTE | 2017-03-04 21:26 | EKG REPORT ---
SEVERITY:- ABNORMAL ECG - ATRIAL FIBRILLATION, V-RATE 73-120 VENTRICULAR PREMATURE COMPLEX ABNRM R PROG, CONSIDER ASMI OR LEAD PLACEMENT NONSPECIFIC T ABNORMALITIES, LATERAL LEADS : Confirmed by: Hector Jerez MD 04-Mar-2017 21:25:47
[2017-03-05 15:08] LABS: PATH REVIEW PATHOLOGIST REVIEWED
== END 2017-03-04 17:15 | disposition short-term general hospital (02) ==
LOC: ER 09:02
DX: A41.9 Sepsis, unspecified organism (principal); K56.60 Unspecified intestinal obstruction; J18.1 Lobar pneumonia, unspecified organism; I26.99 Other pulmonary embolism without acute cor pulmonale; Z90.49 Acquired absence of other specified parts of digestive tract; R11.2 Nausea with vomiting, unspecified; I48.91 Unspecified atrial fibrillation; R10.9 Unspecified abdominal pain; R09.02 Hypoxemia; I25.10 Atherosclerotic heart disease of native coronary artery without angina pectoris; I25.2 Old myocardial infarction; I10 Essential (primary) hypertension; E11.9 Type 2 diabetes mellitus without complications; Z88.6 Allergy status to analgesic agent; Z87.891 Personal history of nicotine dependence
CPT/HCPCS: 93005; 96376; 99291; 96372; 96361; 96375; 96365; 96367; 36415; 87040; 87086; 83690; 85025; 85610; 80053; 81001; 82803; 83605; 71010; 74000; 71275; 74177; 93010; J1956; J1335; J3490; J2270; J2405; J7030; J1650; J0692

== ENCOUNTER → 2017-09-13 | Outpatient (CLI) | payer MEDICARE, OTHER ==
[2017-09-13 17:30] LABS: HEMATOCRIT 36.8 % (37.9-51.0); HEMOGLOBIN 12.3 g/dL (13.5-17.0); MEAN CORPUSCULAR HEMOGLOBIN 30.8 pg (27.0-33.4); MEAN CORPUSCULAR HGB CONC 33.4 g/dL (32.0-36.0); MEAN CORPUSCULAR VOLUME 92 fl (80-97); PLATELET COUNT 198 10^3/uL (150-450); RED BLOOD COUNT 3.99 10^6/uL (4.35-5.55); RED CELL DISTRIBUTION WIDTH 17.1 % (11.5-14.0); WHITE BLOOD COUNT 8.5 10^3/uL (4.0-10.5)
[2017-09-13 18:00] LABS: ABSOLUTE LYMPHOCYTES# (MANUAL) 2.8 10^3/uL (0.5-4.7); ABSOLUTE MONOCYTES # (MANUAL) 0.3 10^3/uL (0.1-1.4); ABSOLUTE NEUTROPHILS# (MANUAL) 5.1 10^3/uL (1.7-8.2); BAND NEUTROPHILS % (MANUAL) 1 % (3-5); BASOPHILS % (MANUAL) 0 % (0-2); EOSINOPHILS % (MANUAL) 3 % (0-6); LYMPHOCYTES % (MANUAL) 33 % (13-45); METAMYELOCYTES % (MANUAL) 1 % (0); MONOCYTES % (MANUAL) 4 % (3-13); SEGMENTED NEUTROPHILS % (MAN) 58 % (42-78); TOTAL CELLS COUNTED 100
[2017-09-13 18:02] LABS: TOXIC GRANULATION 2+
[2017-09-13 18:03] LABS: ANISOCYTOSIS 2+; OVALOCYTES 1+; PLATELET COMMENT ADEQUATE; PLATELET LARGE PRESENT; POIKILOCYTOSIS 1+; SCHISTOCYTES 1+; TEAR DROP CELLS SLIGHT
== END ==
LOC: OD 15:36
PROVIDERS: ATTEND Surgery
DX: R19.7 Diarrhea, unspecified (principal)
CPT/HCPCS: 36415; 85025

== ENCOUNTER 2018-10-31 09:18 | Day surgery (SDC) | payer MEDICARE, OTHER ==
[2018-10-31] MEDS ORDERED: FENTANYL CITRATE INJ/PF 100 MCG/2 ML AMPUL ONE (10:11)
[2018-10-31] MEDS ORDERED: DIPHENHYDRAMINE HCL 50 MG/ML VIAL ONE (10:11)
[2018-10-31] MEDS ORDERED: FLUMAZENIL INJ 0.5 MG/5 ML VIAL ONE (10:11)
[2018-10-31] MEDS ORDERED: NALOXONE HCL INJ/PF 0.4 MG/1 ML SDV ONE (10:11)
[2018-10-31] MEDS ORDERED: ONDANSETRON HCL INJ/PF 4 MG/2 ML SDV ONE (10:11)
[2018-10-31] MEDS ORDERED: EPINEPHRINE INJ 1 MG/10 ML DISP.SYRIN ONE (10:12)
[2018-10-31] MEDS ORDERED: GLUCAGON,HUMAN RECOMB 1 MG INJ ONE (10:12)
[2018-10-31] MEDS: MIDAZOLAM 2 MG/2 ML INJ ONE ×2 (10:20→10:24)
--- NOTE | 2018-10-31 11:05 | Discharge Summary ---
Discharge Summary (SDC) - Discharge Final Diagnosis: History of tubular adenoma of the cecum, status post right hemicolectomy; normal surveillance colonoscopy Date of Surgery: 10/31/18 Discharge Date: 10/31/18 Condition: Good Treatment or Instructions: [address] [address] POST ENDOSCOPY DISCHARGE INSTRUCTIONS 1. Diet: Start clear liquids that a regular diet as tolerated. 2. Resume all preoperative medications. All oral anticoagulants and aspirins can be resumed 24 hours after procedure. 3. If a polypectomy was performed some bleeding per rectum may occur. This should stop within 3 days. If not, please contact the office. 4. If you had a colonoscopy you may experience some bloating and delayed return of normal bowel function for several days, your regular bowel movement pattern should resume within a week. 5. Please contact [facility] at to make an appointment with Dr. Paredes for 1 to 3 weeks following procedure. 6. If you have any questions or concerns regarding your care,treatment plan or follow up, please contact our office. 7. Per clinical guidelines we recommend you undergo a repeat colonoscopy in 5 years pending patient's overall health condition. Referrals: YESSICA LOMBARDO FNP [Primary Care Provider] - Discharge Diet: As Tolerated Discharge Activity: Activity As Tolerated Home Care Assistance: None Needed Report the Following to Your Physician Immediately: Shortness of Breath, Increase in Pain, Fever over 101 Degrees
--- NOTE | 2018-10-31 11:07 | Operative Report ---
Operative Report DATE OF SURGERY: 10/31/18 PREOPERATIVE DIAGNOSIS: History of tubular adenomatous of the cecum; status post right hemicolectomy POSTOPERATIVE DIAGNOSIS: Normal colonoscopy; normal ileocolonic anastomosis; scattered diverticulosis OPERATION: Total colonoscopy to ileocolonic anastomosis with photodocumentation SURGEON: LEONARDA GOLDEN ANESTHESIA: Moderate Sedation TISSUE REMOVED OR ALTERED: None COMPLICATIONS: None ESTIMATED BLOOD LOSS: None INTRAOPERATIVE FINDINGS: See below PROCEDURE: Obtaining informed consent the patient was taken from the preoperative holding area to the main endoscopy suite where monitoring devices were attached to the patient. Plan and surgical timeout were conducted The patient was placed in the left lateral decubitus position with knees to chest. A perianal examination was performed. There was no visible or palpable anorectal pathology. Sphincter tone was felt to be normal. The flexible adult colonoscope was advanced through the anal rectal canal, all the way to the ileotransverse colonic anastomosis. Multiple photos were taken. Complete visualization of the staple line, terminal ileum opening, and the end of the transverse colon was achieved. This was an excellent study on the well-prepped bowel. The colonoscope was withdrawn slowly and methodically checked and the mucosa carefully. There was no evidence of tumor, stricture, bleeding or polyp. There were rare diverticulosis of the sigmoid colon. The scope was slowly withdrawn through the anal rectal canal. Complete visualization of the rectum was achieved with photodocumentation. The scope was withdrawn to the patient's anus. The patient tolerated the procedure well and was taken to the recovery area in stable condition. Per surveillance guidelines, patient be appropriate candidate for follow-up colonoscopy in 5 years pending overall patient health.
[2018-10-31 12:12] VITALS: BP 119/79
== END 2018-10-31 12:12 | disposition home or self-care (01) ==
LOC: END 09:18
PROVIDERS: ATTEND Surgery
DX: K57.30 Diverticulosis of large intestine without perforation or abscess without bleeding (principal); Z86.010 Personal history of colon polyps; Z90.49 Acquired absence of other specified parts of digestive tract; I10 Essential (primary) hypertension; E78.00 Pure hypercholesterolemia, unspecified; G62.9 Polyneuropathy, unspecified; R63.4 Abnormal weight loss; I25.10 Atherosclerotic heart disease of native coronary artery without angina pectoris; I48.91 Unspecified atrial fibrillation; E11.42 Type 2 diabetes mellitus with diabetic polyneuropathy; K40.90 Unilateral inguinal hernia, without obstruction or gangrene, not specified as recurrent; Z79.01 Long term (current) use of anticoagulants; Z79.899 Other long term (current) drug therapy; Z68.27 Body mass index [BMI] 27.0-27.9, adult
CPT/HCPCS: 45378; J2250; J3010; J0171; J1200; J1610; J2310; J2405; J3490

== ENCOUNTER 2018-11-09 21:37 | Emergency (ER) | payer MEDICARE, OTHER ==
[2018-11-09] MEDS ORDERED: CEPHALEXIN 500 MG CAPSULE PO ONE (23:26)
--- NOTE | 2018-11-09 23:30 | ER Document Report ---
ED General - General Chief Complaint: Feet Swelling Stated Complaint: TICK BITE, FEET SWELLING Time Seen by Provider: 11/09/18 22:53 Primary Care Provider: YESSICA LOMBARDO FNP [Primary Care Provider] - Follow up as needed Notes: Patient is an 83-year-old male with a past medical history of atrial fibrillation, hypertension who presents with 2 distinct concerns. His first concern is that he was bit by a tick on his right inner thigh 3 days ago and since then he has had an itching, mild irritation to the area. Denies any significant pain but states there has become increasingly red and the area has grown in size. Nothing seemed to improve or worsen that concern her symptoms. He also reports 3-4 days of bilateral lower extremity edema that is been worsening since onset. States this started after he had a colonoscopy for 5 days ago. Denies history of similar symptoms in the past. Does not try to tr eat the symptoms. Nothing seems to worsen the symptoms. Denies any orthopnea, shortness of breath, exertional dyspnea. No history of CHF or renal failure. TRAVEL OUTSIDE OF THE [place] IN LAST 30 DAYS: No - Related Data Allergies/Adverse Reactions: aspirin Allergy (Mild, Verified 11/09/18 21:38) Generalized rash Past Medical History - General Information source: Patient, Relative - Social History Smoking Status: Never Smoker Frequency of alcohol use: None Drug Abuse: None Lives with: Family Family History: Reviewed & Not Pertinent - Past Medical History Cardiac Medical History: Reports: Hx Heart Attack - 1997-unsure Denies: Hx Coronary Artery Disease, Hx Hypertension Pulmonary Medical History: Reports: Hx Pneumonia Denies: Hx Asthma, Hx Bronchitis, Hx COPD Neurological Medical History: Denies: Hx Cerebrovascular Accident, Hx Seizures Endocrine Medical History: Reports: Hx Diabetes Mellitus Type 2 Musculoskeletal Medical History: Reports Hx Arthritis Past Surgical History: Reports: Hx Appendectomy, Hx Bowel Surgery - 1 ft removed/colon surgery, Hx Cardiac Surgery - Immunizations Hx Diphtheria, Pertussis, Tetanus Vaccination: - unsure Review of Systems - Review of Systems Notes: Constitutional: Negative for fever. HENT: Negative for sore throat. Eyes: Negative for visual changes. Cardiovascular: Negative for chest pain. Respiratory: Negative for shortness of breath. Gastrointestinal: Negative for abdominal pain, vomiting or diarrhea. Genitourinary: Negative for dysuria. Musculoskeletal: Positive for bilateral lower extremity edema Skin: Positive for rash. Neurological: Negative for headaches, weakness or numbness. 10 point ROS negative except as marked above and in HPI. Physical Exam - Vital signs Interpretation: Normal Notes: PHYSICAL EXAMINATION: GENERAL: Well-appearing, well-nourished and in no acute distress. HEAD: Atraumatic, normocephalic. EYES: Pupils equal round and reactive to light, extraocular movements intact, sclera anicteric, conjunctiva are normal. ENT: nares patent, oropharynx clear without exudates. Moist mucous membranes. NECK: Normal range of motion, supple without lymphadenopathy LUNGS: Breath sounds clear to auscultation bilaterally and equal. No wheezes rales or rhonchi. HEART: Irregular regular rate and rhythm without murmurs ABDOMEN: Soft, nontender, normoactive bowel sounds. No guarding, no rebound. No masses appreciated. EXTREMITIES: Normal range of motion, 2+ pitting edema in the bilateral lower extremities that is equal and symmetric no cyanosis. NEUROLOGICAL: No focal neurological deficits. Moves all extremities spontaneously and on command. PSYCH: Normal mood, normal affect. SKIN: Warm, Dry, normal turgor, there is an approximately 2 x 2 centimeter area of erythema to the right medial thigh from what appears to be originally a tick bite Course - Re-evaluation Re-evalutation: 11/09/18 23:37 Patient presents with 2 distinct complaints. 1. Tick bite right medial inner thigh. Patient had a tick bite 3 days ago, concerned due redness and increasing swelling to the area. There is a small sc ab overlying the area which was pulled back no evidence of retained insect parts. There is no fluctuance or fluid collection to the area. However given the degree of induration and erythema the patient will be started on coverage for what appears to be a cellulitis. Cephalexin has been initiated and will be prescribed for home 2. Bilateral lower extremity edema: The patient does have 2+ pitting edema in the bilateral lower extremities to the level of the mid tib bilaterally that is equal and symmetric. Patient did receive IV fluids during colonoscopy for 5 days ago and I suspect that this is likely third spacing of the tissue. He has no history of CHF or renal failure. No orthopnea or shortness of breath. Will obtain basic labs, chest x-ray and if these are unremarkable plan for c ompression stocking application as well as follow-up with his primary doctor. 11/10/18 01:29 Labs overall unremarkable, BNP elevated although no old for comparison. Chest x-ray without evidence of cardiomegaly or pulmonary edema. I have advised close outpatient follow-up, compression stockings have been placed. At this time will discharge with return precautions and follow-up recommendations. Verbal discharge instructions given a the bedside and opportunity for questions given. Medication warnings reviewed. Patient is in agreement with this plan and has verbalized understanding of return precautions and the need for primary care follow-up in the next 24-72 hours. - Laboratory Result Diagrams: 11/09/18 23:50 11/09/18 23:50 Laboratory results interpreted by me: 11/09/18 11/09/18 11/09/18 23:50 23:50 23:50 RBC 3.89 L Hgb 12.7 L Hct 37.4 L RDW 17.3 H Glucose 128 H NT-Pro-B Natriuret Pep 2070 H - Diagnostic Test Radiology reviewed: Image reviewed, Reports reviewed Radiology results interpreted by me: 11/10/18 01:31 Chest x-ray: No acute infiltrate or pneumothorax. No evidence of pulmonary edema. Discharge - Discharge Clinical Impression: Bilateral lower extremity edema, Cellulitis of right leg Tick bite Qualifiers: Encounter type: initial encounter Qualified Code(s): W57.XXXA - Bitten or stung by nonvenomous insect and other nonvenomous arthropods, initial encounter Condition: Good Disposition: HOME, SELF-CARE Additional Instructions: The rash is likely due to infection of your skin. You need to take the antibiotics as prescribed. You should also return if you develop fevers with temperature greater than 101, persistent vomiting, worsening pain, or have any other symptoms that are concerning to you. Your seen today for edema of your bilateral lower extremities. The exact cause of the swelling is uncertain but but could be related to the fluid you received during colonoscopy. Wear the compression stockings for 12 hours each day to help reduce the fluid in your legs. I advised you to follow-up with your primary care doctor regarding this issue as your labs today do suggest that you may have mild underlying congestive heart failure. Prescriptions: Cephalexin Monohydrate [Keflex 500 mg Capsule] 500 mg PO Q6H 7 Days capsule Referrals: YESSICA LOMBARDO FNP [Primary Care Provider] - Follow up as needed
[2018-11-10 00:02] LABS: ABSOLUTE BASOPHILS # (AUTO) 0.1 10^3/uL (0.0-0.2); ABSOLUTE EOSINOPHILS # (AUTO) 0.1 10^3/uL (0.0-0.6); ABSOLUTE LYMPHOCYTES (AUTO) 2.9 10^3/uL (0.5-4.7); ABSOLUTE MONOCYTES (AUTO) 1.1 10^3/uL (0.1-1.4); ABSOLUTE NEUT (AUTO) 5.7 10^3/uL (1.7-8.2); BASOPHILS % (AUTO) 0.7 % (0-2); EOSINOPHILS % (AUTO) 1.3 % (0-6); HEMATOCRIT 37.4 % (37.9-51.0); HEMOGLOBIN 12.7 g/dL (13.5-17.0); LYMPHOCYTES % (AUTO) 29.6 % (13-45); MEAN CORPUSCULAR HEMOGLOBIN 32.8 pg (27.0-33.4); MEAN CORPUSCULAR HGB CONC 34.1 g/dL (32.0-36.0); MEAN CORPUSCULAR VOLUME 96 fl (80-97); MONOCYTES % (AUTO) 10.8 % (3-13); PLATELET COUNT 163 10^3/uL (150-450); RED BLOOD COUNT 3.89 10^6/uL (4.35-5.55); RED CELL DISTRIBUTION WIDTH 17.3 % (11.5-14.0); SEGMENTED NEUTROPHILS % (AUTO) 57.6 % (42-78); TOTAL CELLS COUNTED % (AUTO) 100 %; WHITE BLOOD COUNT 9.9 10^3/uL (4.0-10.5)
[2018-11-10 00:31] LABS: ALANINE AMINOTRANSFERASE 34 U/L (21-72); ALBUMIN 3.6 g/dL (3.5-5.0); ALKALINE PHOSPHATASE 84 U/L (38-126); ANION GAP 9 (5-19); ASPARTATE AMINO TRANSFERASE 25 U/L (17-59); BILIRUBIN,DIRECT 0.3 mg/dL (0.0-0.4); BILIRUBIN,TOTAL 1.3 mg/dL (0.2-1.3); BLOOD UREA NITROGEN 12 mg/dL (7-20); CALCIUM 8.9 mg/dL (8.4-10.2); CARBON DIOXIDE 29 mmol/L (22-30); CHLORIDE 104 mmol/L (98-107); GLUCOSE 128 mg/dL (75-110); POTASSIUM 4.1 mmol/L (3.6-5.0); SODIUM 141.5 mmol/L (137-145); TOTAL PROTEIN 7.2 g/dL (6.3-8.2)
--- NOTE | 2018-11-10 00:36 | RADIOLOGY REPORT (SQ) ---
EXAM DESCRIPTION: [facility]Lex: XR CHEST 1 VIEW CLINICAL HISTORY: 83 years Male, leg swelling COMPARISON: 03/04/2017 FINDINGS: Lungs are clear, with no focal infiltrate, pneumothorax, or pleural effusion. Sternal wires are again noted. Heart appears slightly enlarged, although this is likely exaggerated by the positioning. There is no mediastinal shift or widening.. Bony structures are unremarkable. IMPRESSION: 1. No acute pulmonary findings. 2. Previous sternotomy.
[2018-11-10] MEDS ORDERED: FUROSEMIDE 40 MG TABLET PO ONE (01:33)
== END 2018-11-10 02:00 | disposition home or self-care (01) ==
LOC: ER 21:37
DX: S70.361A Insect bite (nonvenomous), right thigh, initial encounter (principal); L03.115 Cellulitis of right lower limb; W57.XXXA Bitten or stung by nonvenomous insect and other nonvenomous arthropods, initial encounter; R60.0 Localized edema; E11.9 Type 2 diabetes mellitus without complications; I10 Essential (primary) hypertension; Z98.890 Other specified postprocedural states; Z88.6 Allergy status to analgesic agent; R79.89 Other specified abnormal findings of blood chemistry
CPT/HCPCS: 99285; 36415; 85025; 80053; 83880; 71045; A9270 ×2

== ENCOUNTER 2019-03-02 08:52 | Emergency (ER) | payer MEDICARE, OTHER ==
--- NOTE | 2019-03-02 09:45 | ER Document Report ---
ED Respiratory Problem - General Chief Complaint: Breathing Difficulty Stated Complaint: DIFFICULTY BREATHING Time Seen by Provider: 03/02/19 09:31 Primary Care Provider: YESSICA LOMBARDO FNP [Primary Care Provider] - Follow up as needed Mode of Arrival: Ambulatory Information source: Patient, Relative TRAVEL OUTSIDE OF THE [place] IN LAST 30 DAYS: No - HPI Patient complains to provider of: Short of breath - pt has h/o A fib with c/o SOB for the past several weeks. He was sent to [facility] 2 days ago for PFT's with unknown results. Denies CP at present - Related Data Allergies/Adverse Reactions: aspirin Allergy (Mild, Verified 03/02/19 08:53) Generalized rash Past Medical History - General Information source: Patient, Relative - Social History Smoking Status: Former Smoker Cigarette use (# per day): No Family History: Reviewed & Not Pertinent - Past Medical History Cardiac Medical History: Reports: Hx Heart Attack - 1997-unsure Denies: Hx Coronary Artery Disease, Hx Hypertension Pulmonary Medical History: Reports: Hx Pneumonia Denies: Hx Asthma, Hx Bronchitis, Hx COPD Neurological Medical History: Denies: Hx Cerebrovascular Accident, Hx Seizures Endocrine Medical History: Reports: Hx Diabetes Mellitus Type 2 Musculoskeletal Medical History: Reports Hx Arthritis Past Surgical History: Reports: Hx Appendectomy, Hx Bowel Surgery - 1 ft removed/colon surgery, Hx Cardiac Surgery - Immunizations Hx Diphtheria, Pertussis, Tetanus Vaccination: - unsure Review of Systems - Review of Systems Constitutional: No symptoms reported EENT: No symptoms reported Cardiovascular: No symptoms reported Respiratory: See HPI, Short of breath Gastrointestinal: No symptoms reported Musculoskeletal: No symptoms reported Neurological/Psychological: No symptoms reported -: Yes All other systems reviewed and negative Physical Exam - Vital signs Vitals: Temp Pulse Resp BP Pulse Ox 97.9 F 57 L 18 142/67 H 94 03/02/19 08:57 03/02/19 08:57 03/02/19 08:57 03/02/19 08:57 03/02/19 08:57 - General General appearance: Appears well In distress: None - HEENT Mucous membranes: Normal Pharynx: Normal Neck: Normal - Respiratory Respiratory status: No respiratory distress Chest status: Nontender Breath sounds: Normal Chest palpation: Normal - Cardiovascular Rhythm: Irregularly irregular Heart sounds: Normal auscultation Murmur: No - Abdominal Inspection: Normal Tenderness: Nontender - Extremities General upper extremity: Normal inspection General lower extremity: Normal inspection - Neurological Neuro grossly intact: Yes Cognition: Normal Orientation: AAOx4 Course - Re-evaluation Re-evalutation: 03/02/19 12:45 pt's exam unchanged from priors -- pulse ox 94% at d/c -- pt. expressed desire to go home with family - Vital Signs Vital signs: Temp Pulse Resp BP Pulse Ox 97.9 F 57 L 18 142/67 H 94 03/02/19 08:57 03/02/19 08:57 03/02/19 08:57 03/02/19 08:57 03/02/19 08:57 - Laboratory Result Diagrams: 03/02/19 10:35 03/02/19 10:35 Laboratory results interpreted by me: 03/02/19 03/02/19 03/02/19 10:35 10:35 10:35 RBC 3.95 L Hgb 12.7 L MCV 98 H RDW 16.8 H D-Dimer 0.92 H Chloride 109 H BUN 23 H Glucose 242 H Total Bilirubin 1.8 H - Diagnostic Test Radiology reviewed: Reports reviewed - neg PE - EKG Interpretation by Me Rate: Normal Rhythm: A.Fib - atrial fib with PVC's and no acute change Discharge - Discharge Clinical Impression: Shortness of breath Condition: Stable Disposition: HOME, SELF-CARE Additional Instructions: rest, continue current meds, return if worse Referrals: YESSICA LOMBARDO FNP [Primary Care Provider] - Follow up as needed
--- NOTE | 2019-03-02 10:32 | RADIOLOGY REPORT (SQ) ---
EXAM DESCRIPTION: CHEST 2 VIEWS COMPLETED DATE/TIME: 03/02/2019 10:11 am REASON FOR STUDY: SOB COMPARISON: 11/10/2018 and 12/21/2015. EXAM PARAMETERS: NUMBER OF VIEWS: two views TECHNIQUE: Digital Frontal and Lateral radiographic views of the chest acquired. RADIATION DOSE: NA LIMITATIONS: none FINDINGS: LUNGS AND PLEURA: Mild interstitial prominence. No focal infiltrates, masses or pneumotho rax. No pleural effusion. MEDIASTINUM AND HILAR STRUCTURES: No masses or contour abnormalities. HEART AND VASCULAR STRUCTURES: Heart normal size. BONES: No acute findings. HARDWARE: Sternotomy wires and coronary bypass markers. Clips in the upper abdomen. OTHER: No other significant finding. IMPRESSION: MILD DIFFUSE INTERSTITIAL PROMINENCE MAY BE DUE TO A COMBINATION OF CHRONIC INTERSTITIAL SCARRING WITH MILD INTERSTITIAL EDEMA. NO OTHER SIGNIFICANT FINDINGS. TECHNICAL DOCUMENTATION: JOB ID: [id number] [email or web address]- All Rights Reserved Reading location - IP/workstation name: [email or web address]
[2019-03-02 10:50] LABS: ABSOLUTE EOSINOPHILS # (AUTO) 0.1 10^3/uL (0.0-0.6); ABSOLUTE LYMPHOCYTES (AUTO) 1.7 10^3/uL (0.5-4.7); ABSOLUTE MONOCYTES (AUTO) 0.9 10^3/uL (0.1-1.4); ABSOLUTE NEUT (AUTO) 6.5 10^3/uL (1.7-8.2); BASOPHILS % (AUTO) 0.5 % (0-2); EOSINOPHILS % (AUTO) 0.9 % (0-6); HEMATOCRIT 38.5 % (37.9-51.0); HEMOGLOBIN 12.7 g/dL (13.5-17.0); LYMPHOCYTES % (AUTO) 18.9 % (13-45); MEAN CORPUSCULAR HEMOGLOBIN 32.2 pg (27.0-33.4); MEAN CORPUSCULAR VOLUME 98 fl (80-97); MONOCYTES % (AUTO) 9.4 % (3-13); PLATELET COUNT 198 10^3/uL (150-450); RED BLOOD COUNT 3.95 10^6/uL (4.35-5.55); RED CELL DISTRIBUTION WIDTH 16.8 % (11.5-14.0); SEGMENTED NEUTROPHILS % (AUTO) 70.3 % (42-78); TOTAL CELLS COUNTED % (AUTO) 100 %; WHITE BLOOD COUNT 9.2 10^3/uL (4.0-10.5)
[2019-03-02 11:29] LABS: ALBUMIN 3.5 g/dL (3.5-5.0); ALKALINE PHOSPHATASE 78 U/L (38-126); ANION GAP 10 (5-19); ASPARTATE AMINO TRANSFERASE 37 U/L (17-59); BILIRUBIN,DIRECT 0.2 mg/dL (0.0-0.4); BILIRUBIN,TOTAL 1.8 mg/dL (0.2-1.3); BLOOD UREA NITROGEN 23 mg/dL (7-20); CALCIUM 8.6 mg/dL (8.4-10.2); CARBON DIOXIDE 23 mmol/L (22-30); CHLORIDE 109 mmol/L (98-107); CREATINE KINASE 85 U/L (55-170); GLUCOSE 242 mg/dL (75-110); POTASSIUM 4.1 mmol/L (3.6-5.0); TOTAL PROTEIN 6.7 g/dL (6.3-8.2)
[2019-03-02 11:40] LABS: CREATINE KINASE MB 3.49 ng/mL (<4.55); TROPONIN I 0.02 ng/mL
--- NOTE | 2019-03-02 12:29 | RADIOLOGY REPORT (SQ) ---
EXAM DESCRIPTION: CTA CHEST COMPLETED DATE/TIME: 03/02/2019 12:04 pm REASON FOR STUDY: SOB COMPARISON: 03/04/2017 TECHNIQUE: CT scan of the chest performed using helical scanning technique with dynamic intravenous contrast injection. Images reviewed with lung, soft tissue and bone windows. Reconstructed coronal and sagittal MPR images reviewed. Additional 3 dimensional post-processing performed to develop Maximal Intensity Projection images (GA P). All images stored on PACS. All CT scanners at this facility use dose modulation, iterative reconstruction, and/or weight based d osing when appropriate to reduce radiation dose to as low as reasonably achievable (ALARA). [facility]: Dose Right [facility]: CareDose [facility]: Dose Right [facility]: Teradose 4D [facility]: Intense CONTRAST TYPE AND DOSE: contrast/concentration: Isovue 350.00 mg/ml; Total Contrast Delivered: 67.0 ml; Total Saline Delivered: 80.0 ml Contrast bolus optimized for the pulmonary arteries. Not diagnostic for the aorta. RENAL FUNCTION: GFR > 60. RADIATION DOSE: CT Rad equipment meets quality standard of care and radiation dose reduction techniq ues were employed. CTDIvol: 22.4 - 41.3 mGy. DLP: 821 mGy-cm. . LIMITATIONS: None. FINDINGS: LUNGS AND PLEURA: No pneumothorax. Increased interstitial thickening and small pleural e ffusions. Minimal dependent subsegmental atelectasis. . AORTA AND GREAT VESSELS: No aneurysm. Contrast bolus not optimized for the aorta. HEART: No pericardial effusion. Heavy coronary artery calcifications. PULMONARY ARTERIES: No emboli visualized in the main pulmonary arteries or the segmental branches. HILAR AND MEDIASTINAL STRUCTURES: Scattered mildly enlarged nodes. HARDWARE: CABG. UPPER ABDOMEN: No significant findings. Limited exam. THYROID AND OTHER SOFT TISSUES: No masses. No adenopathy. BONES: No acute or significant finding. 3D MIPS: Confirm above findings. OTHER: No other significant finding. IMPRESSION: No emboli visualized in the main pulmonary arteries or the segmental branches.Increased interstitial thickening and small pleural effusions. Minimal dependent subsegmental atelectasis. COMMENT: Quality ID # [id number]: Final reports with documentation of one or more dose reduction techniques (e.g., Automated exposure control, adjustment of the mA and/or kV according to patient size, use of iterative reconstruction technique) TECHNICAL DOCUMENTATION: JOB ID: [id number] [place]-72 2010 [employer]- All Rights Reserved Reading location - IP/workstation name: [email or web address]
[2019-03-02 13:18] VITALS: BP 149/70
--- NOTE | 2019-03-02 23:12 | EKG REPORT ---
SEVERITY:- ABNORMAL ECG - ATRIAL FIBRILLATION, V-RATE 61-107 VENTRICULAR BIGEMINY CONSIDER ANTEROSEPTAL INFARCT BORDERLINE T ABNORMALITIES, INFERIOR LEADS BORDERLINE PROLONGED QT INTERVAL : Confirmed by: Candelaria Edmonds MD 02-Mar-2019 23:11:19
== END 2019-03-02 13:10 | disposition home or self-care (01) ==
LOC: ER 08:52
DX: R06.02 Shortness of breath (principal); I48.91 Unspecified atrial fibrillation; I49.3 Ventricular premature depolarization; E11.9 Type 2 diabetes mellitus without complications; I25.2 Old myocardial infarction; Z87.01 Personal history of pneumonia (recurrent); Z88.8 Allergy status to other drugs, medicaments and biological substances; Z87.891 Personal history of nicotine dependence
CPT/HCPCS: 36415; 71046; 71275; 80053; 82550; 82553; 84484; 85025; 85379; 93005; 93010; 99285

== ENCOUNTER 2019-03-15 08:07 | Inpatient (IN) | payer MEDICARE, OTHER ==
[2019-03-15] MEDS ORDERED: NORMAL SALINE 500 ML IV ONE (09:46)
--- NOTE | 2019-03-15 09:48 | ER Document Report ---
ED Medical Screen (RME) - General Chief Complaint: Vomiting/Diarrhea Stated Complaint: WEAKNESS Time Seen by Provider: 03/15/19 09:38 Primary Care Provider: YESSICA LOMBARDO FNP [Primary Care Provider] - Follow up as needed Mode of Arrival: Wheelchair Information source: Patient Notes: Patient is a 83-year-old male presents emergency department with chief complaint of diarrhea, fatigue and generalized weakness. Patient and family report the patient has had persistent diarrhea for the last 2 days. He has also vomited x1. He denies any chest pain but does report some shortness of breath that is increased from his baseline. He states that he generally feels unwell. Exam: Patient is alert, oriented and answering all questions appropriately. Bowel sounds hyperactive. Lung sounds clear and equal bilaterally. Heart sounds S1-S2 present with no ectopy noted. I have greeted and performed a rapid initial assessment of this patient. A comprehensive ED assessment and evaluation of the patient, analysis of test results and completion of the medical decision making process will be conducted by additional ED providers. I have specifically instructed the patient or family members with the patient to immediately return to any nursing staff should anything change in the patient's condition or with their chief complaint. This medical record was dictated with voice recognizing software. There may be grammatical, syntax errors that are unintended. TRAVEL OUTSIDE OF THE [place] IN LAST 30 DAYS: No - Related Data Allergies/Adverse Reactions: aspirin Allergy (Mild, Verified 03/15/19 08:08) Generalized rash Past Medical History - Social History Frequency of alcohol use: None Drug Abuse: None - Past Medical History Cardiac Medical History: Reports: Hx Heart Attack - 1997-unsure Denies: Hx Coronary Artery Disease, Hx Hypertension Pulmonary Medical History: Reports: Hx Pneumonia Denies: Hx Asthma, Hx Bronchitis, Hx COPD Neurological Medical History: Denies: Hx Cerebrovascular Accident, Hx Seizures Endocrine Medical History: Reports: Hx Diabetes Mellitus Type 2 Renal/ Medical History: Denies: Hx Peritoneal Dialysis Musculoskeltal Medical History: Reports Hx Arthritis Past Surgical History: Reports: Hx Appendectomy, Hx Bowel Surgery - 1 ft removed/colon surgery, Hx Cardiac Surgery - Immunizations Hx Diphtheria, Pertussis, Tetanus Vaccination: - unsure Influenza Administration Date for 04/2017 - 09/2017 Season: 04/29/19 Physical Exam - Vital signs Vitals: Temp Pulse Resp BP Pulse Ox 97.4 F 62 16 98/58 L 95 03/15/19 08:13 03/15/19 08:13 03/15/19 08:13 03/15/19 08:13 03/15/19 08:13 Course - Vital Signs Vital signs: Temp Pulse Resp BP Pulse Ox 97.4 F 62 16 98/58 L 95 03/15/19 08:13 03/15/19 08:13 03/15/19 08:13 03/15/19 08:13 03/15/19 08:13 Doctor's Discharge - Discharge Referrals: YESSICA LOMBARDO FNP [Primary Care Provider] - Follow up as needed
--- NOTE | 2019-03-15 10:24 | RADIOLOGY REPORT (SQ) ---
EXAM DESCRIPTION: CHEST SINGLE VIEW COMPLETED DATE/TIME: 03/15/2019 10:09 am REASON FOR STUDY: weakness, fatigue COMPARISON: 03/02/2019 TECHNIQUE: Single frontal radiographic view of the chest acquired. NUMBER OF VIEWS: One view. LIMITATIONS: None. FINDINGS: LUNGS AND PLEURA: No pneumothorax. No consolidation or pleural effusion. MEDIASTINUM AND HILAR STRUCTURES: Stable. HEART AND VASCULAR STRUCTURES: Stable. BONES: No acute findings. HARDWARE: CABG. OTHER: No other significant finding. IMPRESSION: NO ACUTE FINDINGS. TECHNICAL DOCUMENTATION: JOB ID: [id number] [place]-72 2010 [employer]- All Rights Reserved Reading location - IP/workstation name: [email or web address]
[2019-03-15 10:43] LABS: ABSOLUTE LYMPHOCYTES (AUTO) 2.7 10^3/uL (0.5-4.7); TOTAL CELLS COUNTED % (AUTO) 100 %
[2019-03-15 10:48] LABS: ABSOLUTE BASOPHILS # (AUTO) 0.1 10^3/uL (0.0-0.2); ABSOLUTE MONOCYTES (AUTO) 1.2 10^3/uL (0.1-1.4); ABSOLUTE NEUT (AUTO) 12.6 10^3/uL (1.7-8.2); BASOPHILS % (AUTO) 0.4 % (0-2); EOSINOPHILS % (AUTO) 0.3 % (0-6); HEMOGLOBIN 15.2 g/dL (13.5-17.0); LYMPHOCYTES % (AUTO) 16.1 % (13-45); MEAN CORPUSCULAR VOLUME 97 fl (80-97); MONOCYTES % (AUTO) 7.4 % (3-13); PLATELET COUNT 207 10^3/uL (150-450); RED BLOOD COUNT 4.74 10^6/uL (4.35-5.55); RED CELL DISTRIBUTION WIDTH 16.6 % (11.5-14.0); SEGMENTED NEUTROPHILS % (AUTO) 75.8 % (42-78); WHITE BLOOD COUNT 16.7 10^3/uL (4.0-10.5)
[2019-03-15] MEDS ORDERED: ONDANSETRON HCL INJ/PF 4 MG/2 ML SDV IV ONE (10:57)
[2019-03-15] MEDS ORDERED: NORMAL SALINE 1000 ML 1,000 ML IV ONE ×2 (10:57→12:53)
[2019-03-15 11:01] LABS: ALBUMIN 4.6 g/dL (3.5-5.0); ALKALINE PHOSPHATASE 96 U/L (38-126); ANION GAP 19 (5-19); ASPARTATE AMINO TRANSFERASE 29 U/L (17-59); BILIRUBIN,DIRECT 0.2 mg/dL (0.0-0.4); BILIRUBIN,TOTAL 1.2 mg/dL (0.2-1.3); BLOOD UREA NITROGEN 62 mg/dL (7-20); CALCIUM 9.5 mg/dL (8.4-10.2); CARBON DIOXIDE 18 mmol/L (22-30); CHLORIDE 101 mmol/L (98-107); GLUCOSE 221 mg/dL (75-110); POTASSIUM 4.5 mmol/L (3.6-5.0); TOTAL PROTEIN 8.2 g/dL (6.3-8.2)
--- NOTE | 2019-03-15 11:03 | ER Document Report ---
ED General - General Chief Complaint: Vomiting/Diarrhea Stated Complaint: WEAKNESS Time Seen by Provider: 03/15/19 09:38 Primary Care Provider: YESSICA LOMBARDO FNP [Primary Care Provider] - Follow up as needed Mode of Arrival: Wheelchair TRAVEL OUTSIDE OF THE [place] IN LAST 30 DAYS: No - HPI Notes: Patient is an 83-year-old male with a history of A. fib (on Coumadin), AAA with stent placed, DM, coronary artery disease with stent placed, colon CA s/p resection who presents planing of generalized weakness, nausea, vomiting x1, and 10 episodes of watery diarrhea over the past 1 to 2 days. Patient states that he is able to eat and drink, but does have a decreased p.o. intake. He is urinating normally. He has not noticed any melena or hematochezia. Patient states that he does have some mild increase from baseline of his shortness of breath, but no chest pain. Patient states that he did see his lung doctor last week. No other concerns or complaints at this time. He is accompanied by his family who otherwise states that he is acting behaving normally. Denies any headache, fever, neck pain, changes in vision/speech/mentation/hearing, URI, sore throat, chest pain, palpitations, syncope, cough, wheeze, dyspnea, abdominal pain, urinary retention, dysuria, hematuria, loss of control of bowel or bladder, numbness/tingling, saddle anesthesia, muscle paralysis/weakness, or rash. - Related Data Allergies/Adverse Reactions: aspirin Allergy (Mild, Verified 03/15/19 08:08) Generalized rash Past Medical History - General Information source: Patient - Social History Smoking Status: Former Smoker Frequency of alcohol use: None Drug Abuse: None Family History: Reviewed & Not Pertinent Patient has suicidal ideation: No Patient has homicidal ideation: No - Past Medical History Cardiac Medical History: Reports: Hx Heart Attack - 1997-unsure Denies: Hx Coronary Artery Disease, Hx Hypertension Pulmonary Medical History: Reports: Hx Pneumonia Denies: Hx Asthma, Hx Bronchitis, Hx COPD Neurological Medical History: Denies: Hx Cerebrovascular Accident, Hx Seizures Endocrine Medical History: Reports: Hx Diabetes Mellitus Type 2 Renal/ Medical History: Denies: Hx Peritoneal Dialysis Musculoskeletal Medical History: Reports Hx Arthritis Past Surgical History: Reports: Hx Appendectomy, Hx Bowel Surgery - 1 ft removed/colon surgery, Hx Cardiac Surgery - Immunizations Hx Diphtheria, Pertussis, Tetanus Vaccination: - unsure Review of Systems - Review of Systems -: Yes All other systems reviewed and negative Physical Exam - Vital signs Vitals: Temp Pulse Resp BP Pulse Ox 97.4 F 62 16 98/58 L 95 03/15/19 08:13 03/15/19 08:13 03/15/19 08:13 03/15/19 08:13 03/15/19 08:13 - Notes Notes: PHYSICAL EXAMINATION: GENERAL: Well-appearing, well-nourished and in no acute distress. A&Ox4. Answers questions appropriately. HEAD: Atraumatic, normocephalic. EYES: Pupils equal round and reactive to light, extraocular movements intact, sclera anicteric, conjunctiva are normal. ENT: Nares patent and without discharge. oropharynx clear without exudates. No tonsilar hypertrophy or erythema. Moist mucous membranes. NECK: Normal range of motion, supple without lymphadenopathy LUNGS: Breath sounds clear to auscultation bilaterally and equal. No wheezes rales or rhonchi. HEART: IRR ABDOMEN: Soft, nontender, nondistended abdomen. No guarding, no rebound. No masses appreciated. Normal bowel sounds present. No CVA tenderness bilaterally. Steele neg. Musculoskeletal: FROM to passive/active. Strength 5+/5. David neg. No asymmetry to LE's. Extremities: No cyanosis, clubbing, or edema b/l. Peripheral pulses 2+. Capillary refill less than 3 seconds. NEUROLOGICAL: Normal speech. Cranial nerves grossly intact. PSYCH: Normal mood, normal affect. SKIN: Warm, Dry, normal turgor, no rashes or lesions noted. Course - Re-evaluation Re-evalutation: 03/15/19 12:58 Patient is an afebrile, well-hydrated, 83-year-old male who presents with gastro enteritis and acute kidney injury. Vitals are currently acceptable without significant tachycardia, tachypnea, hypoxia, hypotension. Patient's abdomen is soft and nontender throughout. See lab results. I did call for admission to the hospital and was accepted by Dr. Conley to telemetry. - Vital Signs Vital signs: Temp Pulse Resp BP Pulse Ox 97.4 F 62 17 110/70 97 03/15/19 08:13 03/15/19 08:13 03/15/19 12:01 03/15/19 12:01 03/15/19 12:01 - Laboratory Result Diagrams: 03/15/19 10:14 03/15/19 10:14 Laboratory results interpreted by me: 03/15/19 03/15/19 03/15/19 09:57 10:14 10:14 WBC 16.7 H RDW 16.6 H Absolute Neutrophils 12.6 H PT 28.7 H Carbon Dioxide 18 L BUN 62 H Creatinine 3.92 H Est GFR ( Amer) 18 L Est GFR (Non-Af Amer) 15 L Glucose 221 H NT-Pro-B Natriuret Pep Urine Protein Urine Glucose (UA) Urine Ketones Urine Blood Urine Urobilinogen 03/15/19 03/15/19 10:14 12:09 WBC RDW Absolute Neutrophils PT Carbon Dioxide BUN Creatinine Est GFR ( Amer) Est GFR (Non-Af Amer) Glucose NT-Pro-B Natriuret Pep 2270 H Urine Protein 30 H Urine Glucose (UA) 150 H Urine Ketones TRACE H Urine Blood SMALL H Urine Urobilinogen 2.0 H Discharge - Discharge Clinical Impression: Gastroenteritis, SASHA (acute kidney injury) Condition: Stable Disposition: ADMITTED INPATIENT Admitting Provider: Dr. Conley Unit Admitted: Telemetry Referrals: YESSICA LOMBARDO FNP [Primary Care Provider] - Follow up as needed
[2019-03-15 11:12] LABS: INTERNATIONAL RATION (INR) 2.64; PROTHROMBIN TIME 28.7 SEC (11.4-15.4)
[2019-03-15 11:15] LABS: TROPONIN I 0.04 ng/mL
[2019-03-15 12:44] LABS: AMORPHOUS SEDIMENT,URINE TRACE /HPF; APPEARANCE,URINE SLIGHTLY-CLOUDY; BILIRUBIN,URINE NEGATIVE (NEGATIVE); GLUCOSE, URINE 150 mg/dL (NEGATIVE); KETONES,URINE TRACE mg/dL (NEGATIVE); LEUKOCYTE ESTERASE,URINE NEGATIVE (NEGATIVE); NITRITE,URINE NEGATIVE (NEGATIVE); PROTEIN,URINE 30 mg/dL (NEGATIVE); URINE SPECIFIC GRAVITY 1.017
[2019-03-15 12:45] LABS: COLOR,URINE YELLOW
[2019-03-15] MEDS ORDERED: ACETAMINOPHEN 325 MG TABLET PO PRN (14:40)
[2019-03-15] MEDS ORDERED: IPRATROPIUM/ALBUTEROL 0.5-2.5 MG/3 ML AMPUL NEB PRN (14:40)
[2019-03-15] MEDS ORDERED: ONDANSETRON HCL INJ/PF 4 MG/2 ML SDV IV PRN (14:49)
--- NOTE | 2019-03-15 15:04 | PDOC H&P ---
History of Present Illness Admission Date/PCP: 03/15/19 13:12 DOMINGO LOPEZ Patient complains of: diarrhea History of Present Illness: AMI ALSTON is a 83 year old maleWith a past medical history of diabetes, chronic atrial fibrillation anticoagulated with warfarin, history of colon cancer, who presented to the ED for diarrhea for 2 days. Patient states that for the last 2 days he is having diarrhea started about 10 times a day and yesterday he has more than 5 times a day but it has decreased. He states that the diarrhea is nonbloody in nature. He denies any abdominal pain, chest pain, or dizzness. He does admit to some nausea and one episode of vomiting. States that for the last 2 days he has not been having good p.o. intake but did try to drink some Gatorade. Of note patient was here in the hospital about 1 to 2 weeks ago with shortness of breath and was diagnosed with possible some fluid in his lungs then went to see his assistant housekeeping manager, Dr. Valdovinos, his assistant housekeeping manager started him on Lasix 40 mg daily. States that he stopped the Lasix after he lost about 5 pounds 3 to 4 days ago. Hospitalist were consulted for admission due to findings of elevated creatinine and dehydration. Past Medical History Cardiac Medical History: Reports: Myocardial Infarction - 1997-unsure Denies: Coronary Artery Disease, Hypertension Pulmonary Medical History: Reports: Pneumonia Denies: Asthma, Bronchitis, Chronic Obstructive Pulmonary Disease (COPD) Neurological Medical History: Denies: Seizures Endocrine Medical History: Reports: Diabetes Mellitus Type 2 Musculoskeltal Medical History: Reports: Arthritis Hematology: Denies: Anemia Past Surgical History Past Surgical History: Reports: Appendectomy Social History Smoking Status: Former Smoker - Advance Directive Resuscitation Status: Do Not Resuscitate Surrogate healthcare decision maker:: Family History Family History: Reviewed & Not Pertinent Parental Family History Reviewed: Yes Children Family History Reviewed: Unknown Sibling(s) Family History Reviewed.: Unknown Medication/Allergy Home Medications: Furosemide [Lasix 40 mg Tablet] 40 mg PO DAILY 03/15/19 Glimepiride [Amaryl 4 mg Tablet] 4 mg PO DAILY 03/15/19 Lisinopril [Prinivil 5 mg Tablet] 5 mg PO DAILY 03/15/19 Simvastatin [Zocor 40 mg Tablet] 40 mg PO DAILY 03/15/19 Warfarin Sodium [Coumadin 5 mg Tablet] 5 mg PO DAILY 03/15/19 Allergies/Adverse Reactions: aspirin Allergy (Mild, Verified 03/15/19 08:08) Generalized rash Review of Systems All systems: reviewed and no additional remarkable complaints except as stated Constitutional: ABSENT: fever(s) Eyes: ABSENT: visual disturbances Nose, Mouth, and Throat: ABSENT: headache(s) Cardiovascular: ABSENT: chest pain, edema, palpitations Gastrointestinal: PRESENT: diarrhea, nausea, vomiting. ABSENT: abdominal pain, coffee ground emesis Neurological: ABSENT: focal weakness, tingling Physical Exam Vital Signs: Temp Pulse Resp BP Pulse Ox 97.4 F 62 13 107/70 97 03/15/19 08:13 03/15/19 08:13 03/15/19 14:02 03/15/19 14:02 03/15/19 14:02 Intake & Output 03/14/19 03/15/19 03/16/19 06:59 06:59 06:59 Intake Total 2500 Balance 2500 Weight 191 lb General appearance: PRESENT: no acute distress Head exam: PRESENT: atraumatic, normocephalic Eye exam: PRESENT: EOMI. ABSENT: scleral icterus Ear exam: PRESENT: normal external ear exam Mouth exam: PRESENT: dry mucosa Neck exam: ABSENT: tracheal deviation Respiratory exam: PRESENT: clear to auscultation laina, symmetrical Cardiovascular exam: PRESENT: +S1, +S2 Pulses: PRESENT: +1 pedal pulses bilateral GI/Abdominal exam: PRESENT: normal bowel sounds, soft. ABSENT: tenderness Extremities exam: ABSENT: joint swelling, pedal edema Neurological exam: PRESENT: alert, awake, oriented to person, oriented to place, CN II-XII grossly intact Skin exam: PRESENT: warm Results Laboratory Results: 03/15/19 10:14 03/15/19 10:14 03/15/19 03/15/19 03/15/19 10:14 10:14 12:09 WBC 16.7 H RBC 4.74 Hgb 15.2 Hct 46.0 MCV 97 MCH 32.0 MCHC 33.0 RDW 16.6 H Plt Count 207 Seg Neutrophils % 75.8 Lymphocytes % 16.1 Monocytes % 7.4 Eosinophils % 0.3 Basophils % 0.4 Absolute Neutrophils 12.6 H Absolute Lymphocytes 2.7 Absolute Monocytes 1.2 Absolute Eosinophils 0.0 Absolute Basophils 0.1 Sodium 138.6 Potassium 4.5 Chloride 101 Carbon Dioxide 18 L Anion Gap 19 BUN 62 H Creatinine 3.92 H Est GFR ( Amer) 18 L Est GFR (Non-Af Amer) 15 L Glucose 221 H Calcium 9.5 Total Bilirubin 1.2 AST 29 Alkaline Phosphatase 96 Total Protein 8.2 Albumin 4.6 Urine Color YELLOW Urine Appearance SLIGHTLY-CLOUDY Urine pH 5.0 Ur Specific [place] 1.017 Urine Protein 30 H Urine Glucose (UA) 150 H Urine Ketones TRACE H Urine Blood SMALL H Urine Nitrite NEGATIVE Ur Leukocyte Esterase NEGATIVE Urine WBC (Auto) 4 Urine RBC (Auto) 1 03/15/19 10:14 Troponin I 0.040 NT-Pro-B Natriuret Pep 2270 H Impressions: Chest X-Ray 03/15/19 09:46 IMPRESSION: NO ACUTE FINDINGS. Assessment and Plan - Diagnosis (1) SASHA (acute kidney injury) Is this a current diagnosis for this admission?: Yes (2) Gastroenteritis Is this a current diagnosis for this admission?: Yes (3) Diarrhea Qualifiers: Diarrhea type: unspecified type Qualified Code(s): R19.7 - Diarrhea, unspe cified Is this a current diagnosis for this admission?: Yes (4) Leukocytosis Is this a current diagnosis for this admission?: Yes (5) Chronic atrial fibrillation Is this a current diagnosis for this admission?: Yes (6) Chronic anticoagulation Is this a current diagnosis for this admission?: Yes (7) Warfarin anticoagulation Is this a current diagnosis for this admission?: Yes (8) History of colon cancer Is this a current diagnosis for this admission?: Yes (9) Diabetes mellitus type 2 in nonobese Is this a current diagnosis for this admission?: Yes (10) Dehydration Is this a current diagnosis for this admission?: Yes - Time Time Spent with patient: 35 or more minutes Anticipated discharge: Home - Inpatient Certification Based on my medical assessment, after consideration of the patient's comorbidities, presenting symptoms, or acuity I expect that the services needed warrant INPATIENT care.: Yes I certify that my determination is in accordance with my understanding of Medicare's requirements for reasonable and necessary INPATIENT services [42 CFR 412.3e].: Yes Medical Necessity: Failure to Improve With Outpatient Therapy, Significant Comorbidiites Make Outpatient Treatment Too Risky, Need For IV Fluids, Need For Continuous Telemetry Monitoring - Plan Summary Plan Summary: Acute kidney injury-most likely secondary due to dehydration and use of Lasix over the last week. His creatinine most recently within the last 2 weeks was 1 and now today is 3.9.We will go ahead and start him on some IV fluids for about a day at 100 cc an hour of normal saline. We will have to be careful as he was recently found to have some pleural effusion and was started on Lasix. Which could also have caused his acute kidney injury given the fact that he was on the Lasix. Repeat BMP in the morning and monitor his electrolytes. Chronic atrial for ablation-he is not any rate control-he tells me that he has not been on it for many years now. He does take warfarin and his INR today is 2.64. We will continue to check his INRs daily. His rate is currently controlled at less than 110. Leukocytosis-unclear etiology although it could be secondary to his diarrhea and all reactive. He is not complaining of any fevers, chills, shortness of breath or urinary symptoms such as dysuria or frequency. I have drawn blood culture and urine culture. Chest x-ray is negative. C. difficile was sent by the ED and is negative. We can consider sending ova parasites from the stool if needed. But is diarrhea is improving and most likely this was just a viral gastroenteritis which should resolve on its own. Diarrhea-most likely a viral gastroenteritis and at this time we will just support him with conservative measures IV fluids-I do not think there is a need for any antibiotics at this time. His white count is elevated but I believe this is all reactive. Admit to telemetry for acute kidney injury and dehydration.
[2019-03-15] MEDS ORDERED: DEXTROSE 40% GEL 15 GM TUBE PO PRN ×2 (15:06)
[2019-03-15] MEDS ORDERED: DEXTROSE 50%-WATER 25 GM/50 ML DISP.SYRIN IV PRN ×2 (15:06)
[2019-03-15] MEDS ORDERED: GLUCAGON,HUMAN RECOMB 1 MG INJ IM PRN (15:06)
--- NOTE | 2019-03-15 15:06 | ADVANCED CARE ---
- Diagnosis (1) SASHA (acute kidney injury) Diagnosis Current: Yes (2) Gastroenteritis Diagnosis Current: Yes (3) Diarrhea Diagnosis Current: Yes (4) Leukocytosis Diagnosis Current: Yes (5) Chronic atrial fibrillation Diagnosis Current: Yes (6) Chronic anticoagulation Diagnosis Current: Yes (7) Warfarin anticoagulation Diagnosis Current: Yes (8) History of colon cancer Diagnosis Current: Yes (9) Diabetes mellitus type 2 in nonobese Diagnosis Current: Yes (10) Dehydration Diagnosis Current: Yes Resuscitation Status: Do Not Resuscitate Discussion: Spoke with patient, along with and daughter in the room. I spent some time discussing about DNR status versus full code versus partial CODE STATUS. We went over multiple different scenarios regarding these different states of CODE STATUS. After further discussion about this patient and agree that he would like to be DNR. They do understand that without appropriate resuscitation that he can .
[2019-03-15] MEDS: INSULIN LISPRO 100 UNIT/ML 3 ML VIAL SUBCUT SCH ×2 (17:09→22:02)
[2019-03-15] MEDS ORDERED: LISINOPRIL 5 MG TABLET PO ONE (20:30)
[2019-03-15] MEDS ORDERED: WARFARIN SODIUM 5 MG TABLET PO ONE (21:00)
[2019-03-15] MEDS ORDERED: SIMVASTATIN 40 MG TABLET PO ONE (21:00)
[2019-03-15] MEDS: FAMOTIDINE 20 MG TABLET PO SCH (22:00)
[2019-03-16] MEDS: NORMAL SALINE 1000 ML 1,000 ML IV PRN ×2 (05:27→20:55)
[2019-03-16 06:01] LABS: ABSOLUTE EOSINOPHILS # (AUTO) 0.1 10^3/uL (0.0-0.6); ABSOLUTE LYMPHOCYTES (AUTO) 2.8 10^3/uL (0.5-4.7); ABSOLUTE MONOCYTES (AUTO) 0.9 10^3/uL (0.1-1.4); ABSOLUTE NEUT (AUTO) 7.2 10^3/uL (1.7-8.2); BASOPHILS % (AUTO) 0.4 % (0-2); EOSINOPHILS % (AUTO) 0.7 % (0-6); HEMATOCRIT 38.8 % (37.9-51.0); INTERNATIONAL RATION (INR) 3.29; MEAN CORPUSCULAR HEMOGLOBIN 31.9 pg (27.0-33.4); MEAN CORPUSCULAR HGB CONC 33.3 g/dL (32.0-36.0); MEAN CORPUSCULAR VOLUME 96 fl (80-97); MONOCYTES % (AUTO) 8.6 % (3-13); PLATELET COUNT 154 10^3/uL (150-450); PROTHROMBIN TIME 34.2 SEC (11.4-15.4); RED BLOOD COUNT 4.05 10^6/uL (4.35-5.55); RED CELL DISTRIBUTION WIDTH 16.2 % (11.5-14.0); SEGMENTED NEUTROPHILS % (AUTO) 65.3 % (42-78); TOTAL CELLS COUNTED % (AUTO) 100 %
[2019-03-16 06:06] LABS: HEMOGLOBIN 12.9 g/dL (13.5-17.0)
[2019-03-16 06:16] LABS: ANION GAP 11 (5-19); BLOOD UREA NITROGEN 57 mg/dL (7-20); CALCIUM 8.1 mg/dL (8.4-10.2); CARBON DIOXIDE 14 mmol/L (22-30); CHLORIDE 111 mmol/L (98-107); GLUCOSE 137 mg/dL (75-110); POTASSIUM 4.2 mmol/L (3.6-5.0)
--- NOTE | 2019-03-16 08:50 | PDOC PROGRESS REPORT ---
Subjective Progress Note for:: 03/16/19 - seen on rounds this morning Subjective:: spoke with patient at bedside with his nurse- he's still having diarrhea- states he's soiled himself overnight. otherwise he denies chest pain, SOB, abdominal pain, n/v or dizziness. discussed about this morning labs Reason For Visit: SASHA,DIARRHEA Physical Exam Vital Signs: Temp Pulse Resp BP Pulse Ox 97.8 F 70 17 90/44 L 95 03/16/19 03:00 03/16/19 07:00 03/16/19 03:00 03/16/19 03:00 03/16/19 03:00 Intake & Output 03/15/19 03/16/19 03/17/19 06:59 06:59 06:59 Intake Total 2500 Balance 2500 Weight 200 lb 6.403 oz General appearance: PRESENT: no acute distress Head exam: PRESENT: atraumatic, normocephalic Eye exam: ABSENT: scleral icterus Ear exam: PRESENT: normal external ear exam Mouth exam: PRESENT: moist Neck exam: ABSENT: tracheal deviation Respiratory exam: PRESENT: clear to auscultation laina, symmetrical Cardiovascular exam: PRESENT: +S1, +S2 Extremities exam: ABSENT: joint swelling, pedal edema Neurological exam: PRESENT: alert, awake, oriented to person, oriented to place, CN II-XII grossly intact Skin exam: PRESENT: dry, erythema - b/l forearms- chronic, warm Results Laboratory Results: 03/16/19 05:13 03/16/19 05:13 03/15/19 03/15/19 03/15/19 10:14 10:14 12:09 WBC 16.7 H RBC 4.74 Hgb 15.2 Hct 46.0 MCV 97 MCH 32.0 MCHC 33.0 RDW 16.6 H Plt Count 207 Seg Neutrophils % 75.8 Lymphocytes % 16.1 Monocytes % 7.4 Eosinophils % 0.3 Basophils % 0.4 Absolute Neutrophils 12.6 H Absolute Lymphocytes 2.7 Absolute Monocytes 1.2 Absolute Eosinophils 0.0 Absolute Basophils 0.1 Sodium 138.6 Potassium 4.5 Chloride 101 Carbon Dioxide 18 L Anion Gap 19 BUN 62 H Creatinine 3.92 H Est GFR ( Amer) 18 L Est GFR (Non-Af Amer) 15 L Glucose 221 H Calcium 9.5 Magnesium Total Bilirubin 1.2 AST 29 Alkaline Phosphatase 96 Total Protein 8.2 Albumin 4.6 TSH Urine Color YELLOW Urine Appearance SLIGHTLY-CLOUDY Urine pH 5.0 Ur Specific [place] 1.017 Urine Protein 30 H Urine Glucose (UA) 150 H Urine Ketones TRACE H Urine Blood SMALL H Urine Nitrite NEGATIVE Ur Leukocyte Esterase NEGATIVE Urine WBC (Auto) 4 Urine RBC (Auto) 1 03/16/19 03/16/19 03/16/19 05:13 05:13 05:13 WBC 11.0 H RBC 4.05 L Hgb 12.9 L D Hct 38.8 MCV 96 MCH 31.9 MCHC 33.3 RDW 16.2 H Plt Count 154 Seg Neutrophils % 65.3 Lymphocytes % 25.0 Monocytes % 8.6 Eosinophils % 0.7 Basophils % 0.4 Absolute Neutrophils 7.2 Absolute Lymphocytes 2.8 Absolute Monocytes 0.9 Absolute Eosinophils 0.1 Absolute Basophils 0.0 Sodium 136.2 L Potassium 4.2 Chloride 111 H Carbon Dioxide 14 L Anion Gap 11 BUN 57 H Creatinine 2.32 H Est GFR ( Amer) 33 L Est GFR (Non-Af Amer) 27 L Glucose 137 H Calcium 8.1 L Magnesium 1.9 Total Bilirubin AST Alkaline Phosphatase Total Protein Albumin TSH 0.83 Urine Color Urine Appearance Urine pH Ur Specific [place] Urine Protein Urine Glucose (UA) Urine Ketones Urine Blood Urine Nitrite Ur Leukocyte Esterase Urine WBC (Auto) Urine RBC (Auto) 03/15/19 10:14 Troponin I 0.040 NT-Pro-B Natriuret Pep 2270 H Impressions: Chest X-Ray 03/15/19 09:46 IMPRESSION: NO ACUTE FINDINGS. Assessment and Plan - Diagnosis (1) SASHA (acute kidney injury) Is this a current diagnosis for this admission?: Yes (2) Gastroenteritis Is this a current diagnosis for this admission?: Yes (3) Diarrhea Qualifiers: Diarrhea type: unspecified type Qualified Code(s): R19.7 - Diarrhea, unspecified Is this a current diagnosis for this admission?: Yes (4) Leukocytosis Is this a current diagnosis for this admission?: Yes (5) Chronic atrial fibrillation Is this a current diagnosis for this admission?: Yes (6) Chronic anticoagulation Is this a current diagnosis for this admission?: Yes (7) Warfarin anticoagulation Is this a current diagnosis for this admission?: Yes (8) History of colon cancer Is this a current diagnosis for this admission?: Yes (9) Diabetes mellitus type 2 in nonobese Is this a current diagnosis for this admission?: Yes (10) Dehydration Is this a current diagnosis for this admission?: Yes (11) Essential hypertension Is this a current diagnosis for this admission?: Yes - Plan Summary Plan Summary: Acute kidney injury-most likely secondary due to dehydration and use of Lasix over the last week. Cr is improving 3.9-->2.3 His creatinine most recently within the last 2 weeks was 1 and now today is 3.9.We will go ahead and start him on some IV fluids for about a day at 100 cc an hour of normal saline. We will have to be careful as he was recently found to have some pleural effusion and was started on Lasix. Which could also have caused his acute kidney injury given the fact that he was on the Lasix. Repeat BMP in the morning and monitor his electrolytes. Chronic atrial fibrillation- HR <110- not on meds- on warfarin- but INR elevated today >3- goal is 2-3. he's on 5mg warfarin daily at home- will drop his warfarin to 4mg tonight- repeat INR in AM Leukocytosis-unclear etiology although it could be secondary to his diarrhea and all reactive. WBC improved- i do not think he's infected- Cx neg so far. C. diff neg so far Diarrhea-still having diarrhea- most likely a viral gastroenteritis and at this time we will just support him with conservative measures IV fluids- C.diff neg. will send for ova/parasite
--- NOTE | 2019-03-16 11:37 | EKG REPORT ---
SEVERITY:- ABNORMAL ECG - ATRIAL FIBRILLATION, V-RATE 64-106 MULTIPLE VENTRICULAR PREMATURE COMPLEXES PROBABLE ANTEROSEPTAL INFARCT, OLD BORDERLINE T ABNORMALITIES, DIFFUSE LEADS LATERAL LEADS ARE ALSO INVOLVED BORDERLINE PROLONGED QT INTERVAL : Confirmed by: Sandra Roberson 16-Mar-2019 11:36:23
[2019-03-16] MEDS: INSULIN LISPRO 100 UNIT/ML 3 ML VIAL SUBCUT SCH ×4 (12:01→22:10)
[2019-03-16] MEDS: LISINOPRIL 5 MG TABLET PO SCH (12:02)
[2019-03-16] MEDS: FAMOTIDINE 20 MG TABLET PO SCH ×2 (12:05→22:10)
[2019-03-16] MEDS: SIMVASTATIN 40 MG TABLET PO SCH (12:05)
[2019-03-16] MEDS ORDERED: WARFARIN SODIUM 4 MG TABLET PO SCH (22:00)
[2019-03-16] MEDS ORDERED: WARFARIN SODIUM 5 MG TABLET PO SCH (22:00)
[2019-03-17 05:14] LABS: ABSOLUTE BASOPHILS # (AUTO) 0.1 10^3/uL (0.0-0.2); ABSOLUTE EOSINOPHILS # (AUTO) 0.1 10^3/uL (0.0-0.6); ABSOLUTE LYMPHOCYTES (AUTO) 2.5 10^3/uL (0.5-4.7); ABSOLUTE MONOCYTES (AUTO) 0.9 10^3/uL (0.1-1.4); ABSOLUTE NEUT (AUTO) 5.3 10^3/uL (1.7-8.2); BASOPHILS % (AUTO) 0.7 % (0-2); EOSINOPHILS % (AUTO) 1.4 % (0-6); HEMATOCRIT 37.3 % (37.9-51.0); HEMOGLOBIN 12.5 g/dL (13.5-17.0); LYMPHOCYTES % (AUTO) 28.6 % (13-45); MEAN CORPUSCULAR HEMOGLOBIN 32.1 pg (27.0-33.4); MEAN CORPUSCULAR HGB CONC 33.5 g/dL (32.0-36.0); MEAN CORPUSCULAR VOLUME 96 fl (80-97); MONOCYTES % (AUTO) 9.6 % (3-13); PLATELET COUNT 132 10^3/uL (150-450); RED CELL DISTRIBUTION WIDTH 16.5 % (11.5-14.0); SEGMENTED NEUTROPHILS % (AUTO) 59.7 % (42-78); TOTAL CELLS COUNTED % (AUTO) 100 %; WHITE BLOOD COUNT 8.8 10^3/uL (4.0-10.5)
[2019-03-17] MEDS: NORMAL SALINE 1000 ML 1,000 ML IV PRN (05:27)
[2019-03-17 05:40] LABS: ANION GAP 9 (5-19); BLOOD UREA NITROGEN 43 mg/dL (7-20); CALCIUM 7.9 mg/dL (8.4-10.2); CARBON DIOXIDE 15 mmol/L (22-30); CHLORIDE 115 mmol/L (98-107); GLUCOSE 205 mg/dL (75-110)
[2019-03-17] MEDS: INSULIN LISPRO 100 UNIT/ML 3 ML VIAL SUBCUT SCH ×4 (09:57→21:17)
[2019-03-17] MEDS: FAMOTIDINE 20 MG TABLET PO SCH ×2 (10:11→21:18)
[2019-03-17] MEDS: SIMVASTATIN 40 MG TABLET PO SCH (10:11)
[2019-03-17] MEDS: LISINOPRIL 5 MG TABLET PO SCH (10:12)
--- NOTE | 2019-03-17 17:07 | PDOC PROGRESS REPORT ---
Subjective Progress Note for:: 03/17/19 Subjective:: Saw patient on rounds this morning in the telemetry floor. He has been doing well and was sitting up on the side of the bed. He was very happy to see me and was smiling. He does me that yesterday he did not have much diarrhea and none overnight but this morning he had 3 bouts of diarrhea. Tells me that the first 2 were profuse diarrhea in the last one was less. This morning they did lose his IV in his right arm as he accidentally pulled it out-nursing will attempt to place another IV. He denies chest pain, shortness of breath, abdominal pain, nausea/vomiting or dizziness. Reason For Visit: SASHA,DIARRHEA Physical Exam Vital Signs: Temp Pulse Resp BP Pulse Ox 97.8 F 90 16 111/63 99 03/17/19 16:04 03/17/19 16:04 03/17/19 16:04 03/17/19 16:04 03/17/19 16:04 Intake & Output 03/16/19 03/17/19 03/18/19 06:59 06:59 06:59 Intake Total 2500 2813 480 Balance 2500 2813 480 Weight 200 lb 6.403 oz 204 lb 5.896 oz General appearance: PRESENT: no acute distress Head exam: PRESENT: atraumatic, normocephalic Eye exam: PRESENT: EOMI. ABSENT: scleral icterus Ear exam: PRESENT: normal external ear exam Mouth exam: PRESENT: moist Neck exam: ABSENT: tracheal deviation Respiratory exam: PRESENT: clear to auscultation laina, symmetrical Cardiovascular exam: PRESENT: +S1, +S2 GI/Abdominal exam: PRESENT: normal bowel sounds, soft. ABSENT: tenderness Extremities exam: ABSENT: pedal edema Neurological exam: PRESENT: alert, awake, oriented to person, oriented to place, CN II-XII grossly intact Skin exam: PRESENT: dry, warm Results Laboratory Results: 03/17/19 04:41 03/17/19 04:41 03/17/19 03/17/19 04:41 04:41 WBC 8.8 RBC 3.90 L Hgb 12.5 L Hct 37.3 L MCV 96 MCH 32.1 MCHC 33.5 RDW 16.5 H Plt Count 132 L Seg Neutrophils % 59.7 Lymphocytes % 28.6 Monocytes % 9.6 Eosinophils % 1.4 Basophils % 0.7 Absolute Neutrophils 5.3 Absolute Lymphocytes 2.5 Absolute Monocytes 0.9 Absolute Eosinophils 0.1 Absolute Basophils 0.1 Sodium 138.9 Potassium 4.0 Chloride 115 H Carbon Dioxide 15 L Anion Gap 9 BUN 43 H Creatinine 1.69 H Est GFR ( Amer) 47 L Est GFR (Non-Af Amer) 39 L Glucose 205 H Calcium 7.9 L Magnesium 1.8 03/15/19 12:09 Clean Catch Midstream Urine Culture - Final NO GROWTH 2 DAYS 03/15/19 10:14 Troponin I 0.040 NT-Pro-B Natriuret Pep 2270 H Impressions: Chest X-Ray 03/15/19 09:46 IMPRESSION: NO ACUTE FINDINGS. Assessment and Plan - Diagnosis (1) SASHA (acute kidney injury) Is this a current diagnosis for this admission?: Yes (2) Gastroenteritis Is this a current diagnosis for this admission?: Yes (3) Diarrhea Qualifiers: Diarrhea type: unspecified type Qualified Code(s): R19.7 - Diarrhea, unspecified Is this a current diagnosis for this admission?: Yes (4) Leukocytosis Is this a current diagnosis for this admission?: Yes (5) Chronic atrial fibrillation Is this a current diagnosis for this admission?: Yes (6) Chronic anticoagulation Is this a current diagnosis for this admission?: Yes (7) Warfarin anticoagulation Is this a current diagnosis for this admission?: Yes (8) History of colon cancer Is this a current diagnosis for this admission?: Yes (9) Diabetes mellitus type 2 in nonobese Is this a current diagnosis for this admission?: Yes (10) Dehydration Is this a current diagnosis for this admission?: Yes (11) Essential hypertension Is this a current diagnosis for this admission?: Yes - Plan Summary Plan Summary: 83-year-old male with past medical history of chronic atrial fibrillation, hypertension, who presented to the ED feeling generalized weakness, diarrhea and was found to have elevated creatinine with leukocytosis. Overall he is improving-most likely he can be discharged in 24 to 48 hours. Acute kidney injury-improving steadily-I have stopped his IV fluids today and encouraged p.o. intake--most likely secondary due to dehydration and use of Lasix over the last week. Cr is improving 3.9-->2.3-->1.69. He was recently started on Lasix for suspected heart failure so we have to be careful about h ydration. He is supposed to be on 40 mg of Lasix but I have held this at this time. I think we can start him on a low-dose of 20 mg Lasix in 1 to 2 days. reatinine most recently within the last 2 weeks was 1. Repeat BMP in the morning and monitor his electrolytes. Chronic atrial fibrillation- HR <110- not on meds- on warfarin- but INR elevated again today >3- goal is 2-3. he's on 5mg warfarin daily at home-I have spoken with pharmacy and they will manage his Coumadin from now on- repeat INR in AM Leukocytosis-unclear etiology although it could be secondary to his diarrhea and all reactive. WBC has been trending down every day without any antibiotic use- i do not think he's infected- Cx neg so far. C. diff neg so far-I had initially thought that ER had sent ova parasite and stool cultures. But all I see is stool culture pending on his chart. I have asked nursing to send for ova pradeep astudillo. Diarrhea-still having diarrhea- most likely a viral gastroenteritis and at this time we will just support him with conservative measures- C.diff neg. see plan above
[2019-03-18 04:45] LABS: ABSOLUTE EOSINOPHILS # (AUTO) 0.1 10^3/uL (0.0-0.6); ABSOLUTE LYMPHOCYTES (AUTO) 2.4 10^3/uL (0.5-4.7); ABSOLUTE MONOCYTES (AUTO) 0.9 10^3/uL (0.1-1.4); ABSOLUTE NEUT (AUTO) 5.5 10^3/uL (1.7-8.2); BASOPHILS % (AUTO) 0.6 % (0-2); EOSINOPHILS % (AUTO) 1.1 % (0-6); HEMATOCRIT 37.3 % (37.9-51.0); HEMOGLOBIN 12.5 g/dL (13.5-17.0); LYMPHOCYTES % (AUTO) 26.7 % (13-45); MEAN CORPUSCULAR HEMOGLOBIN 31.9 pg (27.0-33.4); MEAN CORPUSCULAR HGB CONC 33.5 g/dL (32.0-36.0); MEAN CORPUSCULAR VOLUME 95 fl (80-97); MONOCYTES % (AUTO) 10.4 % (3-13); PLATELET COUNT 150 10^3/uL (150-450); RED BLOOD COUNT 3.92 10^6/uL (4.35-5.55); SEGMENTED NEUTROPHILS % (AUTO) 61.2 % (42-78); TOTAL CELLS COUNTED % (AUTO) 100 %
[2019-03-18 04:56] LABS: INTERNATIONAL RATION (INR) 3.58; PROTHROMBIN TIME 36.6 SEC (11.4-15.4)
[2019-03-18 05:03] LABS: ANION GAP 6 (5-19); BLOOD UREA NITROGEN 33 mg/dL (7-20); CALCIUM 8.3 mg/dL (8.4-10.2); CARBON DIOXIDE 19 mmol/L (22-30); CHLORIDE 115 mmol/L (98-107); GLUCOSE 146 mg/dL (75-110); POTASSIUM 4.4 mmol/L (3.6-5.0)
--- NOTE | 2019-03-18 07:51 | Progress Note Acknowledgement ---
Progress Note Acknowledgement Progess Note Acknowledgement: I, the undersigned member of the medical staff with appropriate privileges and with supervisory authority over [Shukri Cruz], a dependent practice allied health professional, acknowledge that I have reviewed the progress notes entered on this patient, and in my professional judgment believe that the assessment made and/or any care evidenced was appropriate
--- NOTE | 2019-03-18 07:56 | PDOC PROGRESS REPORT ---
Subjective Progress Note for:: 03/18/19 Subjective:: March 18, 2019-no complaints this a.m. Reason For Visit: SASHA,DIARRHEA Physical Exam Vital Signs: Temp Pulse Resp BP Pulse Ox 97.6 F 63 17 125/62 100 03/17/19 23:15 03/18/19 02:00 03/17/19 23:15 03/17/19 23:15 03/17/19 23:15 Intake & Output 03/17/19 03/18/19 03/19/19 06:59 06:59 06:59 Intake Total 2813 2080 Balance 2813 2080 Weight 92.7 kg 92 kg General appearance: PRESENT: no acute distress, well-developed, well-nourished Head exam: PRESENT: atraumatic, normocephalic Eye exam: PRESENT: conjunctiva pink, EOMI, PERRLA. ABSENT: scleral icterus Ear exam: PRESENT: normal external ear exam Mouth exam: PRESENT: moist, tongue midline Neck exam: ABSENT: carotid bruit, JVD, lymphadenopathy, thyromegaly Respiratory exam: PRESENT: clear to auscultation laina. ABSENT: rales, rhonchi, wheezes Cardiovascular exam: PRESENT: RRR. ABSENT: diastolic murmur, rubs, systolic murmur Pulses: PRESENT: normal dorsalis pedis pul Vascular exam: PRESENT: normal capillary refill GI/Abdominal exam: PRESENT: normal bowel sounds, soft. ABSENT: distended, guarding, mass, organolmegaly, rebound, tenderness Rectal exam: PRESENT: deferred Extremities exam: PRESENT: full ROM. ABSENT: calf tenderness, clubbing, pedal edema Neurological exam: PRESENT: alert, awake, oriented to person, oriented to place, oriented to time, oriented to situation, CN II-XII grossly intact. ABSENT: motor sensory deficit Psychiatric exam: PRESENT: appropriate affect, normal mood. ABSENT: homicidal ideation, suicidal ideation Skin exam: PRESENT: dry, intact, warm. ABSENT: cyanosis, rash Results Laboratory Results: 03/18/19 03:40 03/18/19 03:40 03/18/19 03/18/19 03:40 03:40 WBC 9.0 RBC 3.92 L Hgb 12.5 L Hct 37.3 L MCV 95 MCH 31.9 MCHC 33.5 RDW 16.0 H Plt Count 150 Seg Neutrophils % 61.2 Lymphocytes % 26.7 Monocytes % 10.4 Eosinophils % 1.1 Basophils % 0.6 Absolute Neutrophils 5.5 Absolute Lymphocytes 2.4 Absolute Monocytes 0.9 Absolute Eosinophils 0.1 Absolute Basophils 0.0 Sodium 140.4 Potassium 4.4 Chloride 115 H Carbon Dioxide 19 L Anion Gap 6 BUN 33 H Creatinine 1.76 H Est GFR ( Amer) 45 L Est GFR (Non-Af Amer) 37 L Glucose 146 H Calcium 8.3 L Magnesium 1.8 03/15/19 12:09 Clean Catch Midstream Urine Culture - Final NO GROWTH 2 DAYS 03/15/19 10:14 Troponin I 0.040 NT-Pro-B Natriuret Pep 2270 H Impressions: Chest X-Ray 03/15/19 09:46 IMPRESSION: NO ACUTE FINDINGS. Assessment and Plan - Diagnosis (1) Acute kidney injury Is this a current diagnosis for this admission?: Yes Plan: March 18, 2019-slightly worse today. Will hydrate patient normal saline 50 mL/h overnight and repeat BMP in a.m. (2) Chronic atrial fibrillation Is this a current diagnosis for this admission?: Yes Plan: March 18, 2019-heart rate in the 60s at this time. Continue anticoagulation. INR 3.58 this morning we will hold Coumadin at this time repeat INR in a.m. (3) Chronic anticoagulation Is this a current diagnosis for this admission?: Yes Plan: March 18, 2019-Coumadin being held at this time. Will follow INR daily (4) Diabetes mellitus type 2 in nonobese Is this a current diagnosis for this admission?: Yes Plan: March 18, 2019-chronic stable continue to follow continue current therapy - Time Time Spent with patient: 15-24 minutes - Inpatient Certification Based on my medical assessment, after consideration of the patient's comorbidities, presenting symptoms, or acuity I expect that the services needed warrant INPATIENT care.: Yes I certify that my determination is in accordance with my understanding of Medicare's requirements for reasonable and necessary INPATIENT services [42 CFR 412.3e].: Yes Medical Necessity: Other - IV fluids, INR monitoring
[2019-03-18] MEDS: INSULIN LISPRO 100 UNIT/ML 3 ML VIAL SUBCUT SCH ×4 (08:47→21:29)
[2019-03-18] MEDS: NORMAL SALINE 1000 ML 1,000 ML IV PRN (08:48)
[2019-03-18] MEDS: SIMVASTATIN 40 MG TABLET PO SCH (09:33)
[2019-03-18] MEDS: LISINOPRIL 5 MG TABLET PO SCH (09:33)
[2019-03-18] MEDS: FAMOTIDINE 20 MG TABLET PO SCH ×2 (09:33→21:28)
[2019-03-19 05:51] LABS: ANION GAP 7 (5-19); BLOOD UREA NITROGEN 28 mg/dL (7-20); CALCIUM 8.1 mg/dL (8.4-10.2); CARBON DIOXIDE 17 mmol/L (22-30); CHLORIDE 116 mmol/L (98-107); GLUCOSE 163 mg/dL (75-110); POTASSIUM 3.8 mmol/L (3.6-5.0)
[2019-03-19] MEDS: NORMAL SALINE 1000 ML 1,000 ML IV PRN (06:05)
[2019-03-19 06:25] LABS: INTERNATIONAL RATION (INR) 2.95; PROTHROMBIN TIME 31.4 SEC (11.4-15.4)
[2019-03-19] MEDS: INSULIN LISPRO 100 UNIT/ML 3 ML VIAL SUBCUT SCH (07:44)
--- NOTE | 2019-03-19 08:13 | PDOC DISCHARGE SUMMARY ---
General - Admit/Disc Date/PCP Admission Date/Primary Care Provider: 03/15/19 13:12 DOMINGO LOPEZ Discharge Date: 03/19/19 - Discharge Diagnosis (1) Acute kidney injury Is this a current diagnosis for this admission?: Yes (2) Chronic atrial fibrillation Is this a current diagnosis for this admission?: Yes (3) Chronic anticoagulation Is this a current diagnosis for this admission?: Yes (4) Diabetes mellitus type 2 in nonobese Is this a current diagnosis for this admission?: Yes - Additional Information Resuscitation Status: Do Not Resuscitate Discharge Diet: As Tolerated Discharge Activity: Activity As Tolerated Home Medications: Glimepiride [Amaryl 4 mg Tablet] 4 mg PO DAILY 03/15/19 Lisinopril [Prinivil 5 mg Tablet] 5 mg PO DAILY 03/15/19 Simvastatin [Zocor 40 mg Tablet] 40 mg PO DAILY 03/15/19 Warfarin Sodium [Coumadin 5 mg Tablet] 5 mg PO DAILY 03/15/19 History of Present Illness History of Present Illness: AMI ALSTON is a 83 year old male with past medical history of diabetes, chronic fibrillation with Coumadin, colon cancer who presented to the ER with diarrhea for 2 days. Hospital Course Hospital Course: Patient was admitted on March 15, 2019 with diarrhea and had grossly worsened over the last 2 days prior to admission. Patient was admitted placed on IV fluids for acute kidney injury as well as supportive measures for his diarrhea. Over the course of his hospitalization patient's creatinine has resolved and his diarrhea has terminated at this time. Patient is having formed stools now. Patient has no other symptoms at this time, no abdominal pain no diarrhea no chest pain or dizziness. Patient has had no vomiting or nausea either. At this time patient is improved sufficiently return home I will have him follow-up with his primary care practitioner within 1 week. Patient will hold Lasix until he sees his primary care practitioner within this week. Physical Exam Vital Signs: Temp Pulse Resp BP Pulse Ox 98.5 F 64 14 123/87 H 99 03/19/19 03:00 03/19/19 03:00 03/19/19 03:00 03/19/19 03:00 03/19/19 03:00 Intake & Output 03/18/19 03/19/19 03/20/19 06:59 06:59 06:59 Intake Total 2080 3800 Balance 2079 3799 Weight 92 kg 93.3 kg General appearance: PRESENT: no acute distress, well-developed, well-nourished Head exam: PRESENT: atraumatic, normocephalic Eye exam: PRESENT: conjunctiva pink, EOMI, PERRLA. ABSENT: scleral icterus Ear exam: PRESENT: normal external ear exam Mouth exam: PRESENT: moist, tongue midline Neck exam: ABSENT: carotid bruit, JVD, lymphadenopathy, thyromegaly Respiratory exam: PRESENT: clear to auscultation laina. ABSENT: rales, rhonchi, wheezes Cardiovascular exam: PRESENT: RRR. ABSENT: diastolic murmur, rubs, systolic murmur Pulses: PRESENT: normal dorsalis pedis pul Vascular exam: PRESENT: normal capillary refill GI/Abdominal exam: PRESENT: normal bowel sounds, soft. ABSENT: distended, guarding, mass, organolmegaly, rebound, tenderness Rectal exam: PRESENT: deferred Extremities exam: PRESENT: full ROM. ABSENT: calf tenderness, clubbing, pedal edema Neurological exam: PRESENT: alert, awake, oriented to person, oriented to place, oriented to time, oriented to situation, CN II-XII grossly intact. ABSENT: motor sensory deficit Psychiatric exam: PRESENT: appropriate affect, normal mood. ABSENT: homicidal ideation, suicidal ideation Skin exam: PRESENT: dry, intact, warm. ABSENT: cyanosis, rash Results Laboratory Results: 03/18/19 03:40 03/19/19 04:13 03/18/19 03/19/19 20:10 04:13 Sodium 139.7 Potassium 3.8 Chloride 116 H Carbon Dioxide 17 L Anion Gap 7 BUN 28 H Creatinine 1.38 H Est GFR ( Amer) 59 L Est GFR (Non-Af Amer) 49 L Glucose 163 H Calcium 8.1 L Stool Occult Blood NEGATIVE 03/15/19 10:14 Troponin I 0.040 NT-Pro-B Natriuret Pep 2270 H Impressions: Chest X-Ray 03/15/19 09:46 IMPRESSION: NO ACUTE FINDINGS. Qualifiers - * PATIENT BEING DISCHARGED WITH ANY OF THE FOLLOWING DIAGNOSIS: No Acute Heart Failure - Is this a Heart Failure Patient?: No Plan Time Spent: Greater than 30 Minutes
[2019-03-19 08:39] VITALS: BP 132/66
[2019-03-19] MEDS: LISINOPRIL 5 MG TABLET PO SCH (09:01)
[2019-03-19] MEDS: SIMVASTATIN 40 MG TABLET PO SCH (09:02)
[2019-03-19] MEDS: FAMOTIDINE 20 MG TABLET PO SCH (09:02)
== END 2019-03-19 09:40 | disposition home or self-care (01) | DRG 684 ==
LOC: ER 08:07 → EH 13:12 → 5 15:14
PROVIDERS: ADMIT Family Medicine; ATTEND Family Medicine
DX: N17.9 Acute kidney failure, unspecified (principal); E86.0 Dehydration; A08.4 Viral intestinal infection, unspecified; Z79.01 Long term (current) use of anticoagulants; D72.829 Elevated white blood cell count, unspecified; I48.2 Chronic atrial fibrillation; I71.4 Abdominal aortic aneurysm, without rupture; E11.9 Type 2 diabetes mellitus without complications; M19.90 Unspecified osteoarthritis, unspecified site; I25.10 Atherosclerotic heart disease of native coronary artery without angina pectoris; Z66 Do not resuscitate; Z85.038 Personal history of other malignant neoplasm of large intestine; Z90.49 Acquired absence of other specified parts of digestive tract; Z88.6 Allergy status to analgesic agent; Z87.891 Personal history of nicotine dependence; I25.2 Old myocardial infarction; Z79.899 Other long term (current) drug therapy
CPT/HCPCS: 36415; 71045; 80048; 80053; 81001; 82272; 82962; 83735; 83880; 84443; 84484; 85025; 85610; 87040; 87045; 87086; 87177; 87205; 87493; 93005; 93010; 96361; 96374; 99285; J2405; J3490; J7030; J7040

== ENCOUNTER 2020-08-15 08:02 | Emergency (ER) | payer MEDICARE, OTHER ==
--- NOTE | 2020-08-15 08:29 | RADIOLOGY REPORT (SQ) ---
EXAM DESCRIPTION: CHEST SINGLE VIEW IMAGES COMPLETED DATE/TIME: 08/15/2020 8:16 am REASON FOR STUDY: Shortness of Breath COMPARISON: 03/15/2019 EXAM PARAMETERS: NUMBER OF VIEWS: One view. TECHNIQUE: Single frontal radiographic view of the chest acquired. RADIATION DOSE: NA LIMITATIONS: None. FINDINGS: LUNGS AND PLEURA: Subtle increased airspace opacities involving the right upper lobe and l ingula. Right mid lung atelectasis. This is superimposed upon a background of chronically increased interstitial markings. No pleural effusion or pneumothorax. MEDIASTINUM AND HILAR STRUCTURES: No masses. Contour normal. HEART AND VASCULAR STRUCTURES: Mild cardiomegaly without central vascular congestion. BONES: No acute findings. HARDWARE: Midline surgical changes. OTHER: No other significant finding. IMPRESSION: The appropriate clinical setting, findings are consistent with developing multi lobar pn eumonia. Stable background increased interstitial markings. TECHNICAL DOCUMENTATION: JOB ID: [id number] 2010 [employer]- All Rights Reserved Reading location - IP/workstation name: [email or web address]
--- NOTE | 2020-08-15 09:01 | ER Document Report ---
ED Respiratory Problem - General Chief Complaint: Shortness Of Breath Stated Complaint: SHORTNESS OF BREATH Time Seen by Provider: 08/15/20 08:15 Primary Care Provider: YESSICA LOMBARDO FNP [Primary Care Provider] - Follow up as needed TRAVEL OUTSIDE OF THE [place] IN LAST 30 DAYS: No - HPI Notes: 85-year-old male with history of atrial fibrillation lives with Dr. Golden of [facility] presents to ED for evaluation of increased shortness of breath. Patient reports he can normally walk back and forth to his mailbox without any difficulty however he had to stop twice yesterday. Patient also reports he has some mild lower extremity swelling. He endorses no history of congestive heart failure however he feels as though there is increased fluid and crackling when he breathes. He reports that he has not had any recent travel and endorses no concerns for Covid. He denies fevers or chills. Denies abdominal discomfort, ear pain, sinus pain or pressure, or sore throat. Denies any flank discomfort dysuria, or hematuria. Patient reports he is supposed to be taking amiodarone for his rate control however reports he has not done so in several years and appears to have no elevated heart rate. He does take his Coumadin daily and does get his INR checked. Reports it has been within normal limits. Denies chest pain or palpitations at this time. - Related Data Allergies/Adverse Reactions: aspirin Allergy (Mild, Verified 03/15/19 08:08) Generalized rash Past Medical History - Social History Smoking Status: Never Smoker Family History: Reviewed & Not Pertinent - Past Medical History Cardiac Medical History: Reports: Hx Atrial Fibrillation, Hx Heart Attack - 1997-unsure Denies: Hx Coronary Artery Disease, Hx Hypertension Pulmonary Medical History: Reports: Hx Pneumonia Denies: Hx Asthma, Hx Bronchitis, Hx COPD Neurological Medical History: Denies: Hx Cerebrovascular Accident, Hx Seizures Endocrine Medical History: Reports: Hx Diabetes Mellitus Type 2 Renal/ Medical History: Denies: Hx Peritoneal Dialysis Musculoskeletal Medical History: Reports Hx Arthritis Past Surgical History: Reports: Hx Appendectomy, Hx Bowel Surgery - 1 ft removed/colon surgery, Hx Cardiac Surgery - Immunizations Hx Diphtheria, Pertussis, Tetanus Vaccination: - unsure Review of Systems - Review of Systems Notes: CONSTITUTIONAL: No fever, fatigue or weight loss. SKIN: No rash. HENT: No congestion, ear pain, or sore throat. EYES: No recent vision problems or eye pain. ENDOCRINE: No thyroid problems. No polyuria or polydipsia. CARDIOVASCULAR: No chest pain or + edema. RESPIRATORY: No cough, +shortness of breath, congestion, + wheezing. GASTROINTESTINAL: No abdominal pain, nausea, vomiting, bloody stools or diarrhea. GENITOURINARY: No dysuria. MUSCULOSKELETAL: No joint pain or swelling. LYMPHATIC: No swollen glands. NEUROLOGIC: No seizures. No headache, focal weakness or sensory changes. HEMATOLOGIC: No unusual bruising or bleeding. PSYCHIATRIC: No depression or anxiety. Physical Exam - Vital signs Vitals: Temp Resp Pulse Ox 98.4 F 22 H 97 08/15/20 08:12 08/15/20 08:12 08/15/20 08:12 General: No acute distress. Alert and oriented x3. Sitting comfortably in a stretcher. Skin: Intact without any jaundice, pallor, or erythema. Warm and dry. HEENT: Normocephalic, atraumatic. Pupils are equal round reactive to light and accommodation. Extraocular movements are intact. TMs without erythema or bulging. Canals are clear. Nares patent without any discharge. Teeth in good condition. Pharynx without erythema, edema, or exudates. No tonsillar enlargement. Uvula is midline. Airway is patent. Neck: Supple with no lymphadenopathy. Full range of motion. Heart: Regular rate and rhythm. S1,S2. No murmurs, rubs, or gallops. Lungs: Mild upper lobe wheezing bilaterally without rhonchi, rales. Equal chest expansion. No retractions. Abdomen: Soft, nontender to palpation, nondistended. Positive bowel sounds in all 4 quadrants. No hepatosplenomegaly. No masses. No CVA tenderness bilaterally. Neuro: GCS 15. Moving all extremities without discomfort. Extremities: No calf tenderness or edema. Mild pitting edema to medial aspect of feet bilaterally.No cyanosis or clubbing. Radial and pedal pulses 2+ bilaterally. Brisk capillary refill. Psych: Mood and affect appropriate. Course - Re-evaluation Re-evalutation: 08/15/20 12:36 85-year-old male presents to ED for evaluation of increased shortness of breath. Patient is concerned he may have congestive heart failure. Patient does have a history of cardiac stents. Patient was evaluated with labs which show baseline anemia. Patient was also evaluated with a BN peptide which is actually improved from his prior. Patient's LDH was elevated however his ferritin did not show evidence of elevations. Troponin x2 was negative. EKG did not show acute ischemic findings. Patient did have a chest x-ray which was concerning for multi lobar pneumonia. Given these findings I did choose to evaluate patient with a CTA of the chest. Patient CTA did not show evidence of acute intrathoracic processes. There is no evidence of pneumonia, effusions, or other complaints. I did discuss these findings with the patient. Patient did elevate a lactic upon his arrival at 2.4. He was given a liter of fluids and covered empirically with Rocephin and azithromycin until the results of the CT could be obtained. Patient was also found to have a mild drop in his oxygenation upon standing and ambulating. Patient had been 97% and did desaturate to roughly 93 to 94%. Patient also had a period of time where we did obtain a bad pleths on the monitor which showed oxygenation in the 80s however I observed this myself and noted that this was not an accurate reading at the time. I did change out the probe on the patient with nursing staff and obtained better pleths moving forward. It was given a dose of a nebulizer as well as a course of steroids. Given his age and the scant amount of wheezing that he did obtain I do not believe it is unreasonable to test him for Covid. Patient was placed at home on isolation until the test results are obtained. He is aware he will be notified of the results if they are positive. Patient is also advised to continue on a course of doxycycline that has been started here. I advised the patient that I believe it is reasonable for him to take this medication as he did have scant wheezing on exam which has cleared after the nebulizer treatment. Patient is advised to follow-up closely with his primary care physician. Advised to return to the ED for any new or worsening symptoms. Understands his course of management. Patient is in agreement with care plan. - Vital Signs Vital signs: Temp Pulse Resp BP Pulse Ox 98.4 F 18 135/81 H 94 08/15/20 08:12 08/15/20 14:08 08/15/20 14:09 08/15/20 14:08 - Laboratory Results Result Diagrams: 08/15/20 08:50 08/15/20 08:50 Laboratory Results Interpreted: 08/15/20 08/15/20 08/15/20 08:50 08:50 08:50 RBC 3.79 L Hgb 12.1 L Hct 36.8 L RDW 17.0 H PT 24.9 H Chloride 111 H Glucose 193 H Lactic Acid Total Bilirubin 2.7 H Lactate Dehydrogenase NT-Pro-B Natriuret Pep 08/15/20 08/15/20 08/15/20 08:50 08:50 08:50 RBC Hgb Hct RDW PT Chloride Glucose Lactic Acid 2.4 H Total Bilirubin Lactate Dehydrogenase 275 H NT-Pro-B Natriuret Pep 1410 H Critical Laboratory Results Reviewed: No Critical Results - Radiology Results Critical Radiology Results Reviewed: No Critical Results Discharge - Discharge Clinical Impression: Person under investigation for COVID-19 Dyspnea Qualifiers: Dyspnea type: unspecified Qualified Code(s): R06.00 - Dyspnea, unspecified Condition: Stable Disposition: HOME, SELF-CARE Prescriptions: Prednisone [Deltasone 20 mg Tablet] 2 tab PO DAILY 5 Days #10 tablet Doxycycline Monohydrate 100 mg PO BID #20 capsule Albuterol Sulfate [Proair HFA Inhalation Aerosol 8.5 gm MDI] 2 puff IH Q4H PRN #1 mdi PRN Reason: Referrals: YESSICA LOMBARDO FNP [Primary Care Provider] - Follow up as needed
[2020-08-15 09:19] LABS: ABSOLUTE BASOPHILS # (AUTO) 0.1 10^3/uL (0.0-0.2); ABSOLUTE EOSINOPHILS # (AUTO) 0.1 10^3/uL (0.0-0.6); ABSOLUTE LYMPHOCYTES (AUTO) 1.6 10^3/uL (0.5-4.7); ABSOLUTE MONOCYTES (AUTO) 0.9 10^3/uL (0.1-1.4); ABSOLUTE NEUT (AUTO) 7.3 10^3/uL (1.7-8.2); BASOPHILS % (AUTO) 0.9 % (0-2); EOSINOPHILS % (AUTO) 0.5 % (0-6); HEMATOCRIT 36.8 % (37.9-51.0); HEMOGLOBIN 12.1 g/dL (13.5-17.0); MEAN CORPUSCULAR VOLUME 97 fl (80-97); MONOCYTES % (AUTO) 9.5 % (3-13); PLATELET COUNT 169 10^3/uL (150-450); RED BLOOD COUNT 3.79 10^6/uL (4.35-5.55); SEGMENTED NEUTROPHILS % (AUTO) 73.1 % (42-78); TOTAL CELLS COUNTED % (AUTO) 100 %
[2020-08-15 09:27] LABS: ALBUMIN 3.7 g/dL (3.5-5.0); ALKALINE PHOSPHATASE 93 U/L (38-126); ANION GAP 8 (5-19); ASPARTATE AMINO TRANSFERASE 44 U/L (17-59); BILIRUBIN,DIRECT 0.1 mg/dL (0.0-0.4); BILIRUBIN,TOTAL 2.7 mg/dL (0.2-1.3); BLOOD UREA NITROGEN 17 mg/dL (7-20); CALCIUM 8.6 mg/dL (8.4-10.2); CARBON DIOXIDE 24 mmol/L (22-30); CHLORIDE 111 mmol/L (98-107); GLUCOSE 193 mg/dL (75-110); POTASSIUM 4.2 mmol/L (3.6-5.0); TOTAL PROTEIN 7.2 g/dL (6.3-8.2)
[2020-08-15 09:28] LABS: INTERNATIONAL RATION (INR) 2.25; PROTHROMBIN TIME 24.9 SEC (11.4-15.4)
[2020-08-15] MEDS ORDERED: AZITHROMYCIN 250 MG TABLET PO ONE (09:41)
[2020-08-15] MEDS ORDERED: CEFTRIAXONE 1 GM/D5W RTU 1 GM/50 ML RTUPB IV ONE (09:41)
[2020-08-15] MEDS ORDERED: NORMAL SALINE 1000 ML 1,000 ML IV ONE (09:41)
--- NOTE | 2020-08-15 11:06 | RADIOLOGY REPORT (SQ) ---
EXAM DESCRIPTION: CTA CHEST IMAGES COMPLETED DATE/TIME: 08/15/2020 10:45 am REASON FOR STUDY: PE COMPARISON: CT chest 03/02/2019, 03/04/2017 TECHNIQUE: CT scan of the chest performed using helical scanning technique with dynamic intravenous contrast injection. Images reviewed with lung, soft tissue and bone windows. Reconstructed coronal and sagittal MPR images reviewed. Additional 3 dimensional post-processing performed to develop Maximal Intensity Projection images (FL P). All images stored on PACS. All CT scanners at this facility use dose modulation, iterative reconstruction, and/or weight based d osing when appropriate to reduce radiation dose to as low as reasonably achievable (ALARA). [facility]: Dose Right [facility]: CareDose [facility]: Dose Right [facility]: Teradose 4D [facility]: Cabeo CONTRAST TYPE AND DOSE: contrast/concentration: Isovue 350.00 mmol/ml; Total Contrast Delivered: 74. 0 ml; Total Saline Delivered: 66.0 ml Contrast bolus optimized for the pulmonary arteries. Not diagnostic for the aorta. RENAL FUNCTION: Creatinine 0.98 RADIATION DOSE: CT Rad equipment meets quality standard of care and radiation dose reduction techniq ues were employed. CTDIvol: 9.9 - 17.4 mGy. DLP: 699 mGy-cm. . LIMITATIONS: None. FINDINGS: LUNGS AND PLEURA: Chronic appearing mild increased interstitial markings throughout the pe riphery of both lungs. Moderate changes of superimposed obstructive lung disease. No acute infiltrates. No pleural effusion or pneumothorax. No gross worrisome pulmonary nodules. AORTA AND GREAT VESSELS: No gross aneurysm. Suboptimal contrast for evaluation of dissection HEART: No pericardial effusion. Post CABG. Calcified aortic valve. PULMONARY ARTERIES: No emboli visualized in the main pulmonary arteries or the segmental branches. HILAR AND MEDIASTINAL STRUCTURES: Mild diffuse mediastinal and hilar adenopathy unchanged from 2017 HARDWARE: None in the chest. UPPER ABDOMEN: Post cholecystectomy. Hiatal hernia. THYROID AND OTHER SOFT TISSUES: Gynecomastia. No masses. No adenopathy. BONES: No acute or significant finding. 3D MIPS: Confirm above findings. OTHER: No other significant finding. IMPRESSION: No CT angio evidence of acute pulmonary emboli. COMMENT: Quality ID # [id number]: Final reports with documentation of one or more dose reduction techniques (e.g., Automated exposure control, adjustment of the mA and/or kV according to patient size, use of iterative reconstruction technique) TECHNICAL DOCUMENTATION: JOB ID: [id number] 2010 [employer]- All Rights Reserved Reading location - IP/workstation name: [email or web address]
[2020-08-15] MEDS ORDERED: DEXAMETHASONE SOD PHOS INJ 10 MG/1 ML VIAL IV ONE (13:27)
[2020-08-15] MEDS ORDERED: ALBUTEROL SULFATE 0.083% NEB 2.5 MG/3 ML AMPUL NEB ONE (13:27)
[2020-08-15 14:25] VITALS: BP 135/81
--- NOTE | 2020-08-15 20:36 | EKG REPORT ---
SEVERITY:- ABNORMAL ECG - PACEMAKER SPIKES OR ARTIFACTS SINUS RHYTHM FIRST DEGREE AV BLOCK CONSIDER ANTEROSEPTAL INFARCT ABNORMAL T, CONSIDER ISCHEMIA, LATERAL LEADS BORDERLINE PROLONGED QT INTERVAL : Confirmed by: Candelaria Edmonds MD 15-Aug-2020 20:35:07
== END 2020-08-15 14:26 | disposition home or self-care (01) ==
LOC: ER 08:02
DX: R06.02 Shortness of breath (principal); R06.2 Wheezing; D64.9 Anemia, unspecified; R74.02 Elevation of levels of lactic acid dehydrogenase [LDH]; E11.9 Type 2 diabetes mellitus without complications; I48.91 Unspecified atrial fibrillation; Z79.01 Long term (current) use of anticoagulants; Z87.01 Personal history of pneumonia (recurrent); Z88.8 Allergy status to other drugs, medicaments and biological substances; Z20.822 Contact with and (suspected) exposure to COVID-19; R60.0 Localized edema; Z95.5 Presence of coronary angioplasty implant and graft
CPT/HCPCS: 93005; 94640; 99285; 96361; 96375; 96365; 36415; 87040; 84145; 82728; 83605; 83615; 83735; 85025; 85610; 80053; 84484; 83880; 71045; 71275; 93010; U0003; A9270 ×2; J7030; J0696; J1100; C9803; 87635; J7613